=== PATIENT | female | born 1950 | race Two or more races ===

== ENCOUNTER 2023-01-01 23:12 | Inpatient (IN) | payer BC, OTHER ==
[~2023-01-01] VITALS: Ht 167.6 cm; Wt 121.1 kg
[2023-01-01 23:50] LABS: Basophils # (auto) 0.1 10 ^3/uL (0-0.2); Basophils % (auto) 0.7 % (0.0-2.0); Eosinophils # (auto) 0.4 10 ^3/uL (0-0.8); Eosinophils % (auto) 4.4 % (0.0-7.0); Hemoglobin 11.9 g/dL (12.2-16.2); Lymphocytes # (auto) 2.3 10 ^3/uL (0.4-5.4); Mean Corpuscular Hemoglobin 30.3 pg (28.0-32.0); Mean Corpuscular Hgb Conc. 32.9 g/dL (32.0-36.0); Mean Corpuscular Volume 92.2 fL (80.0-100.0); Monocytes # (auto) 0.8 10 ^3/uL (0-1.3); Monocytes % (auto) 8.7 % (0.0-12.0); Neutrophils # (auto) 5.5 10 ^3/uL (1.6-8.6); Neutrophils % (auto) 61.2 % (37.0-80.0); Nucleated Red Blood Cells % 0.1 %; Red Blood Cells 3.91 10^6/uL (4.0-5.20); Red Cell Distribution Width 15.7 % (11.8-14.3)
[2023-01-02 00:09] LABS: Bilirubin, Total 0.9 mg/dL (0.2-1.0); Total Protein 7.6 g/dL (6.4-8.2)
[2023-01-02 00:19] LABS: INR 0.99 (0.9-1.15); Partial Thromboplastin Time 26.1 sec (24.6-33.4)
[2023-01-02 00:32] LABS: Potassium 3.6 mmol/L (3.5-5.1)
[2023-01-02 00:33] LABS: Albumin 3.1 g/dL (3.4-5.0); Calcium 9.1 mg/dL (8.5-10.1)
[2023-01-02] MEDS ORDERED: hydrALAZINE HCL 20 MG/ML VL IV ONE (03:25)
[2023-01-02] MEDS ORDERED: ONDANSETRON HCL 4 MG/2 ML VIAL IV PRN (04:15)
[2023-01-02] MEDS ORDERED: HYDROcodone-ACET 5/325MG TAB PO PRN (04:15)
[2023-01-02] MEDS ORDERED: DEXTROSE (50%) 50ML SYRG IV PRN (04:15)
[2023-01-02] MEDS ORDERED: DOCUSATE SOD 100 MG CAP PO PRN (04:15)
[2023-01-02] MEDS ORDERED: hydrALAZINE HCL 20 MG/ML VL IV PRN (04:15)
[2023-01-02] MEDS ORDERED: LEVALBUTEROL HCL 1.25 MG/3 ML NEB NEB SCH (04:45)
[2023-01-02] MEDS ORDERED: FUROSEMIDE 20 MG/2 ML VIAL IV ONE (04:45)
[2023-01-02] MEDS ORDERED: ALBUMIN 25% 100 ML IV ONE (04:45)
[2023-01-02 04:56] LABS: Urine Bacteria FEW /hpf (None Seen); Urine Blood Negative /uL (Negative); Urine Specific Gravity 1.011 (1.001-1.035); Urine WBC 6 /hpf (0 - 5)
[2023-01-02 05:36] LABS: Basophils # (auto) 0 10 ^3/uL (0-0.2); Basophils % (auto) 0.3 % (0.0-2.0); Eosinophils # (auto) 0.1 10 ^3/uL (0-0.8); Eosinophils % (auto) 1.2 % (0.0-7.0); Hematocrit 34.7 % (36.0-46.0); Hemoglobin 12.1 g/dL (12.2-16.2); Lymphocytes # (auto) 1.3 10 ^3/uL (0.4-5.4); Lymphocytes % (auto) 12.9 % (10.0-50.0); Mean Corpuscular Hemoglobin 31.8 pg (28.0-32.0); Mean Corpuscular Hgb Conc. 34.8 g/dL (32.0-36.0); Mean Corpuscular Volume 91.3 fL (80.0-100.0); Monocytes # (auto) 0.8 10 ^3/uL (0-1.3); Monocytes % (auto) 7.4 % (0.0-12.0); Neutrophils % (auto) 78.2 % (37.0-80.0); Red Cell Distribution Width 15.6 % (11.8-14.3); White Blood Cell 10.2 10^3/uL (4.4-10.8)
[2023-01-02 05:38] LABS: Potassium 3.3 mmol/L (3.5-5.1)
[2023-01-02] MEDS ORDERED: ALBUTEROL SULF 2.5 MG/0.5ML(0.5%) NEB SOLN ONE (05:38)
[2023-01-02] MEDS ORDERED: IPRATROPIUM BROM 0.5 MG/2.5ML INH SOL ONE (05:38)
[2023-01-02] MEDS ORDERED: MORPHINE SULFATE INJ 2 MG/ml SYRG IV PRN (05:45)
[2023-01-02] MEDS ORDERED: methylPREDNISolone SOD SUCC 125 MG/2 ML VL IV ONE (05:45)
[2023-01-02] MEDS ORDERED: NITROGLYCERIN 0.4 MG SL TAB SL PRN (05:45)
[2023-01-02 05:47] LABS: Albumin 3.2 g/dL (3.4-5.0); BUN/Creatinine Ratio 25.6 (10.0-20.0); Calcium 8.6 mg/dL (8.5-10.1); Total Protein 7.2 g/dL (6.4-8.2)
[2023-01-02] MEDS ORDERED: methylPREDNISolone SOD SUCC 40 MG/ML VL IV SCH (06:00)
[2023-01-02] MEDS ORDERED: POTASSIUM CHL 20 Meq TABLET PO ONE (06:30)
[2023-01-02] MEDS ORDERED: cefTRIAXone 1GM/50ML D5W 50 ML IV SCH (06:30)
[2023-01-02] MEDS: SODIUM CHLOR 0.9% PF (SALINE LOCK) 10ML VIAL/SYR IV SCH ×3 (06:46→23:06)
[2023-01-02] MEDS: ACETAMINOPHEN 325 MG TAB PO PRN ×2 (06:47→18:21)
[2023-01-02] MEDS: IPRATROPIUM BROM 0.5 MG/2.5ML INH SOL NEB PRN ×2 (06:50→17:35)
[2023-01-02] MEDS: ALBUTEROL SULF 2.5 MG/0.5ML(0.5%) NEB SOLN NEB PRN ×2 (06:50→17:35)
[2023-01-02] MEDS: ACCU-CHEK COMFORT CURVE STRIP VI SCH ×4 (07:07→23:07)
[2023-01-02] MEDS: InsuLIN REG 1unit/0.01ml Soln (100units/ml) SC SCH ×4 (07:08→23:11)
[2023-01-02] MEDS ORDERED: IOHEXOL 300 MG/ML 100ML BOTTLE IJ ONE (10:41)
[2023-01-02] MEDS: ASPirin 81 mg TAB PO SCH (12:07)
[2023-01-02] MEDS: amLODIPine BESYLATE 5 MG TAB PO SCH (12:07)
[2023-01-02] MEDS: FAMOTIDINE (10MG/ML) 2ML VL IV SCH ×2 (12:07→23:03)
[2023-01-02] MEDS: METOPROLOL TARTRATE 25 MG TAB PO SCH ×2 (12:13→23:06)
[2023-01-02 13:28] VITALS: BP 127/76
[2023-01-02] MEDS: ALBUTEROL SULF 2.5 MG/0.5ML(0.5%) NEB SOLN NEB SCH ×3 (17:30→23:11)
[2023-01-02] MEDS: IPRATROPIUM BROM 0.5 MG/2.5ML INH SOL NEB SCH ×3 (17:30→23:11)
[2023-01-02] MEDS: MAGNESIUM SULFATE 1GM/100ML 100 ML IV SCH ×2 (18:01→20:44)
[2023-01-02] MEDS ORDERED: DexAMETHasone SOD PHOS 10MG/1ML VIAL INJ IV ONE (18:15)
[2023-01-02] MEDS: ATORVASTATIN 20 MG TAB PO SCH (23:06)
[2023-01-03] MEDS: ALBUTEROL SULF 2.5 MG/0.5ML(0.5%) NEB SOLN NEB SCH ×5 (06:00→22:26)
[2023-01-03] MEDS: IPRATROPIUM BROM 0.5 MG/2.5ML INH SOL NEB SCH ×5 (06:00→22:26)
[2023-01-03] MEDS: SODIUM CHLOR 0.9% PF (SALINE LOCK) 10ML VIAL/SYR IV SCH ×3 (06:32→21:58)
[2023-01-03 06:51] LABS: Hematocrit 32.3 % (36.0-46.0); Hemoglobin 10.7 g/dL (12.2-16.2); Mean Corpuscular Hemoglobin 30.5 pg (28.0-32.0); Mean Corpuscular Hgb Conc. 33.3 g/dL (32.0-36.0); Mean Corpuscular Volume 91.7 fL (80.0-100.0); Red Blood Cells 3.52 10^6/uL (4.0-5.20); Red Cell Distribution Width 15.6 % (11.8-14.3); White Blood Cell 16.4 10^3/uL (4.4-10.8)
[2023-01-03 06:55] LABS: Basophils % (manual) 0 (0.0-2.0); Blast Cells 0; Eosinophils % (manual) 0 (0-7); Metamyelocytes % 0; Myelocytes % 0; Promyelocytes % 0; Reactive Lymphocytes 0
[2023-01-03] MEDS: ACCU-CHEK COMFORT CURVE STRIP VI SCH ×4 (06:57→21:58)
[2023-01-03] MEDS: InsuLIN REG 1unit/0.01ml Soln (100units/ml) SC SCH ×4 (06:58→22:12)
[2023-01-03 07:17] LABS: Potassium 3.9 mmol/L (3.5-5.1)
[2023-01-03 07:23] LABS: Albumin 2.8 g/dL (3.4-5.0); BUN/Creatinine Ratio 28.1 (10.0-20.0); Bilirubin, Total 1.6 mg/dL (0.2-1.0); Calcium 8.7 mg/dL (8.5-10.1); Total Protein 6.9 g/dL (6.4-8.2)
[2023-01-03 08:40] LABS: Band Neutrophils % (manual) 17; Lymphocytes % (manual) 7 (10.0-50.0); Monocytes % (manual) 4 (0-12)
[2023-01-03] MEDS ORDERED: DexAMETHasone SOD PHOS 10MG/1ML VIAL INJ IV SCH (10:00)
[2023-01-03] MEDS: FAMOTIDINE (10MG/ML) 2ML VL IV SCH ×2 (10:42→21:57)
[2023-01-03] MEDS: DexAMETHasone SOD PHOS 10MG/1ML VIAL INJ IV SCH (10:42)
[2023-01-03] MEDS ORDERED: AZITHROMYCIN 500MG/ 250ML 250 ML IV ONE (10:45)
[2023-01-03] MEDS ORDERED: cefTRIAXone 1GM/50ML D5W 50 ML IV ONE (10:45)
[2023-01-03] MEDS: amLODIPine BESYLATE 5 MG TAB PO SCH (10:46)
[2023-01-03] MEDS: METOPROLOL TARTRATE 25 MG TAB PO SCH ×2 (10:46→21:58)
[2023-01-03] MEDS: ASPirin 81 mg TAB PO SCH (10:47)
[2023-01-03 12:36] VITALS: BP 97/51
[2023-01-03] MEDS ORDERED: AMLO-496 PO (14:19)
[2023-01-03] MEDS ORDERED: LISI-285 PO (14:19)
[2023-01-03] MEDS ORDERED: PANT40TA2 PO (14:19)
[2023-01-03] MEDS ORDERED: MULT1TAB95 PO (14:19)
[2023-01-03] MEDS ORDERED: ASPI1TAB20 PO (14:19)
[2023-01-03] MEDS ORDERED: ATOR-47 PO (14:19)
[2023-01-03] MEDS ORDERED: DULO1CAP6 PO (14:19)
[2023-01-03] MEDS ORDERED: ROPI2TAB31 PO (14:19)
[2023-01-03] MEDS ORDERED: MAGN400T40 PO (14:19)
[2023-01-03] MEDS ORDERED: ROPI0.5T18 PO (14:19)
[2023-01-03] MEDS ORDERED: B-COCAP34 OR (14:19)
[2023-01-03] MEDS ORDERED: METF-372 PO (14:19)
[2023-01-03] MEDS ORDERED: CHOL20004 PO (14:19)
[2023-01-03] MEDS ORDERED: DICL75TA3 PO (14:28)
[2023-01-03] MEDS ORDERED: INSLANTI SC (14:28)
[2023-01-03 16:00] VITALS: BP 123/59
[2023-01-03] MEDS: ATORVASTATIN 20 MG TAB PO SCH (21:57)
[2023-01-03 22:00] VITALS: BP 137/71
[2023-01-04 05:00] VITALS: BP 139/52
[2023-01-04] MEDS: ACCU-CHEK COMFORT CURVE STRIP VI SCH ×4 (06:16→22:25)
[2023-01-04] MEDS: SODIUM CHLOR 0.9% PF (SALINE LOCK) 10ML VIAL/SYR IV SCH ×3 (06:16→22:00)
[2023-01-04 06:17] LABS: Basophils # (auto) 0 10 ^3/uL (0-0.2); Basophils % (auto) 0.1 % (0.0-2.0); Eosinophils # (auto) 0 10 ^3/uL (0-0.8); Hematocrit 30.8 % (36.0-46.0); Hemoglobin 10.3 g/dL (12.2-16.2); Lymphocytes # (auto) 1.2 10 ^3/uL (0.4-5.4); Lymphocytes % (auto) 9.2 % (10.0-50.0); Mean Corpuscular Hemoglobin 30.5 pg (28.0-32.0); Mean Corpuscular Hgb Conc. 33.5 g/dL (32.0-36.0); Mean Corpuscular Volume 91.2 fL (80.0-100.0); Monocytes # (auto) 0.7 10 ^3/uL (0-1.3); Monocytes % (auto) 5.4 % (0.0-12.0); Neutrophils % (auto) 85.3 % (37.0-80.0); Nucleated Red Blood Cells % 0.1 %; Red Blood Cells 3.38 10^6/uL (4.0-5.20); Red Cell Distribution Width 15.3 % (11.8-14.3); White Blood Cell 12.9 10^3/uL (4.4-10.8)
[2023-01-04] MEDS: InsuLIN REG 1unit/0.01ml Soln (100units/ml) SC SCH ×4 (06:27→22:31)
[2023-01-04 06:35] LABS: Calcium 9.2 mg/dL (8.5-10.1); Magnesium 2.1 mg/dL (1.6-2.6); Potassium 3.4 mmol/L (3.5-5.1)
[2023-01-04] MEDS: IPRATROPIUM BROM 0.5 MG/2.5ML INH SOL NEB SCH ×5 (06:57→22:07)
[2023-01-04] MEDS: ALBUTEROL SULF 2.5 MG/0.5ML(0.5%) NEB SOLN NEB SCH ×5 (06:57→22:07)
[2023-01-04 08:00] VITALS: BP 149/86
[2023-01-04] MEDS ORDERED: INSULIN NPH Isophane (HUMAN) 1unit/0.01ml Susp(100units/ml) SC ONE (09:30)
[2023-01-04] MEDS: cefTRIAXone 1GM/50ML D5W 50 ML IV SCH (09:33)
[2023-01-04] MEDS: METOPROLOL TARTRATE 25 MG TAB PO SCH ×2 (09:35→22:34)
[2023-01-04] MEDS: ASPirin 81 mg TAB PO SCH (09:35)
[2023-01-04] MEDS: FAMOTIDINE (10MG/ML) 2ML VL IV SCH ×2 (09:36→22:33)
[2023-01-04] MEDS: amLODIPine BESYLATE 5 MG TAB PO SCH (09:36)
[2023-01-04] MEDS: DexAMETHasone SOD PHOS 10MG/1ML VIAL INJ IV SCH (09:36)
[2023-01-04] MEDS ORDERED: INSULIN LANTUS (GLARGINE) 1 /0.01ml (100units/ml) SC ONE (09:45)
[2023-01-04] MEDS ORDERED: POTASSIUM CHL 20 Meq TABLET PO ONE (09:45)
[2023-01-04] MEDS ORDERED: metFORMIN HYDROCHLORIDE 500 MG TAB PO ONE (09:45)
[2023-01-04] MEDS: AZITHROMYCIN 500MG/ 250ML 250 ML IV SCH (11:36)
[2023-01-04 12:00] VITALS: BP 124/60
[2023-01-04 16:00] VITALS: BP 128/75
[2023-01-04] MEDS ORDERED: INSULIN NPH Isophane (HUMAN) 1unit/0.01ml Susp(100units/ml) SC SCH (18:00)
[2023-01-04] MEDS: metFORMIN HYDROCHLORIDE 500 MG TAB PO SCH (18:39)
[2023-01-04 22:00] VITALS: BP 140/62
[2023-01-04] MEDS: INSULIN LANTUS (GLARGINE) 1 /0.01ml (100units/ml) SC SCH (22:00)
[2023-01-04] MEDS: ATORVASTATIN 20 MG TAB PO SCH (22:33)
[2023-01-05] MEDS: ALBUTEROL SULF 2.5 MG/0.5ML(0.5%) NEB SOLN NEB SCH ×2 (02:12→09:37)
[2023-01-05] MEDS: IPRATROPIUM BROM 0.5 MG/2.5ML INH SOL NEB SCH ×2 (02:12→09:37)
[2023-01-05 05:00] VITALS: BP 123/52
[2023-01-05] MEDS: SODIUM CHLOR 0.9% PF (SALINE LOCK) 10ML VIAL/SYR IV SCH ×2 (06:00→13:35)
[2023-01-05] MEDS: ACCU-CHEK COMFORT CURVE STRIP VI SCH ×2 (06:32→11:39)
[2023-01-05] MEDS: InsuLIN REG 1unit/0.01ml Soln (100units/ml) SC SCH ×2 (06:36→11:38)
[2023-01-05] MEDS: INSULIN LANTUS (GLARGINE) 1 /0.01ml (100units/ml) SC SCH (06:37)
[2023-01-05 08:00] VITALS: BP 146/76
[2023-01-05 08:21] VITALS: BP 123/52
[2023-01-05] MEDS: metFORMIN HYDROCHLORIDE 500 MG TAB PO SCH (08:23)
[2023-01-05] MEDS: amLODIPine BESYLATE 5 MG TAB PO SCH (08:23)
[2023-01-05] MEDS: ASPirin 81 mg TAB PO SCH (08:23)
[2023-01-05] MEDS: METOPROLOL TARTRATE 25 MG TAB PO SCH (08:24)
[2023-01-05] MEDS: cefTRIAXone 1GM/50ML D5W 50 ML IV SCH (08:24)
[2023-01-05] MEDS: DexAMETHasone SOD PHOS 10MG/1ML VIAL INJ IV SCH (08:25)
[2023-01-05] MEDS: FAMOTIDINE (10MG/ML) 2ML VL IV SCH (08:25)
[2023-01-05 09:00] VITALS: BP 146/76
[2023-01-05] MEDS: AZITHROMYCIN 500MG/ 250ML 250 ML IV SCH (10:15)
[2023-01-05] MEDS ORDERED: METO25TA5 PO (10:18)
[2023-01-05] MEDS ORDERED: LEVO-28 PO (10:18)
[2023-01-05 12:01] VITALS: BP 147/76
[2023-01-05 13:00] VITALS: BP 138/71
== END 2023-01-05 13:42 | disposition home or self-care (01) | DRG 193 ==
LOC: ER 23:12 → EDBD 23:12 → TELE 01-02 05:34 → CENTRAL 01-03 12:36 → TELE-CENTR 01-03 13:00
PROVIDERS: ADMIT Nurse Practitioner Family; ATTEND Internal Medicine Geriatric Medicine
DX: J18.9 Pneumonia, unspecified organism (principal); J96.01 Acute respiratory failure with hypoxia; J98.11 Atelectasis; N39.0 Urinary tract infection, site not specified; E44.0 Moderate protein-calorie malnutrition; Z68.41 Body mass index [BMI] 40.0-44.9, adult; Z20.822 Contact with and (suspected) exposure to COVID-19; I10 Essential (primary) hypertension; G47.30 Sleep apnea, unspecified; I16.0 Hypertensive urgency; E11.9 Type 2 diabetes mellitus without complications; Z79.84 Long term (current) use of oral hypoglycemic drugs; Z79.4 Long term (current) use of insulin; Z79.899 Other long term (current) drug therapy
CPT/HCPCS: 36415; 36600; 71045; 71260; 80048; 80053; 81001; 82805; 82962; 83735; 83880; 84484; 85007; 85025; 85027; 85379; 85610; 85730; 87070; 87086; 87205; 87426; 87804; 93005; 93306; 93970; 94640; 96365; 96375; G0378; J0696; J1100; J1815; J2405; J3490; P9047

== ENCOUNTER 2024-02-14 11:09 | Inpatient (IN) | payer OTHER ==
[~2024-02-14] VITALS: Ht 175.3 cm; Wt 84.0 kg
[2024-02-14] VITALS (33 sets, daily range): BP systolic 77–150; BP diastolic 29–55; PULSE 54–125; RESP 18–30; TEMP 96.8–98.3; O2SAT 97–100
[~2024-02-14 11:09] MED LIST: AMLO1TAB23 PO; ASPI1TAB20 PO; ATOR-47 PO; CHOL20004 PO; DICL75TA3 PO; DULO1CAP6 PO; INSLANTI SC; LEVO500T91 PO; LISI-285 PO; MAGN400T40 PO; METF-372 PO; METO25TA5 PO; MULT1TAB95 PO; PANT40TA2 PO; ROPI0.5T26 PO; ROPI2TAB31 PO
[2024-02-14] MEDS: SODIUM CHLORIDE 0.9% 2,000 ML IV ONE (11:15)
[2024-02-14] MEDS: ETOMIDATE (2MG/ML) 20ML VIAL IV ONE (11:15)
[2024-02-14] MEDS: SODIUM BICARB 8.4% 50Meq/50ml SYR Vial IV ONE (11:20)
[2024-02-14] MEDS: InsuLIN REG 1unit/0.01ml Soln (100units/ml) IV ONE (11:20)
[2024-02-14] MEDS: MIDAZOLAM HCL 5 MG/ML-1ML VIAL IV ONE (11:23)
[2024-02-14] MEDS: MIDAZOLAM DRIP 50 mg/50mL 50 ML IV ONE (11:28)
[2024-02-14] MEDS: MIDAZOLAM HCL 5 MG/ML-1ML VIAL ONE (11:28)
[2024-02-14] MEDS: SODIUM CHLORIDE 0.9% 1,000 ML IV ONE (11:30)
[2024-02-14] MEDS: MIDAZOLAM DRIP 50 mg/50mL 50 ML IV SCH (11:30)
[2024-02-14 11:36] LABS: Urine Bacteria None Seen /hpf (None Seen)
[2024-02-14 11:43] LABS: Basophils # (auto) 0.1 10 ^3/uL (0-0.2); Basophils % (auto) 0.7 % (0.0-2.0); Eosinophils # (auto) 0.3 10 ^3/uL (0-0.8); Eosinophils % (auto) 3.7 % (0.0-7.0); Hematocrit 36.6 % (36.0-46.0); Hemoglobin 12.5 g/dL (12.2-16.2); Lymphocytes # (auto) 4.2 10 ^3/uL (0.4-5.4); Lymphocytes % (auto) 48.2 % (10.0-50.0); Mean Corpuscular Hgb Conc. 34.1 g/dL (32.0-36.0); Monocytes # (auto) 0.4 10 ^3/uL (0-1.3); Monocytes % (auto) 4.7 % (0.0-12.0); Neutrophils # (auto) 3.7 10 ^3/uL (1.6-8.6); Neutrophils % (auto) 42.7 % (37.0-80.0); Red Blood Cells 4.16 10^6/uL (4.0-5.20); Red Cell Distribution Width 13.5 % (11.8-14.3); White Blood Cell 8.7 10^3/uL (4.4-10.8)
[2024-02-14 11:59] LABS: INR 1.08 (0.9-1.15); Partial Thromboplastin Time 20.2 SEC (24.5-34.5); Prothrombin Time 11.4 sec (9.3-11.8)
[2024-02-14] MEDS: ACETAMINOPHEN IV 1000 MG/100ML (10MG/ML) IV ONE (12:00)
[2024-02-14 12:02] LABS: Amphetamine Screen, Urine Neg (NEGATIVE); Barbiturate Scree,Urine Neg (NEGATIVE); Benzodiazephine Screen, Urine Neg (NEGATIVE); Cannabinoid Screen, Urine Neg (NEGATIVE); Cocaine Screen, Urine Neg (NEGATIVE); Opiate Scree,Urine Neg (NEGATIVE); Phencyclidine Screen, Urine Neg (NEGATIVE)
[2024-02-14 12:04] LABS: Urine Blood Negative /uL (Negative); Urine Clarity Clear (Clear); Urine Color Light-Yellow (Yellow); Urine Protein, UAD Negative (Negative); Urine Specific Gravity 1.031 (1.001-1.035); Urine Urobilinogen Normal (Negative); Urine WBC <1 /hpf (0 - 5)
[2024-02-14 12:06] LABS: Alanine Aminotransferase 20 U/L (7-40); Albumin 3.4 g/dL (3.2-4.8); Alkaline Phosphatase 191 U/L (46-116); Anion Gap 10 (5-15); Aspartate Aminotransferase 18 U/L (13-40); BUN/Creatinine Ratio 17.3 (10.0-20.0); Blood Alcohol < 3.0 mg/dL (<10); Blood Urea Nitrogen 22 mg/dL (9-23); Calcium 8.6 mg/dL (8.5-10.1); Carbon Dioxide 23 mmol/L (20-30); Chloride 104 mmol/L (98-107); Magnesium 1.6 mg/dL (1.6-2.6); Phosphorus 2.8 mg/dL (2.4-5.1); Potassium 3.8 mmol/L (3.5-5.1); Sodium 137 mmol/L (136-145)
[2024-02-14 12:07] LABS: Bilirubin, Total 1.6 mg/dL (0.2-1.0); Total Protein 5.8 g/dL (5.7-8.2)
[2024-02-14 12:15] LABS: Glucose 567 mg/dL (74-106); Lactic Acid w/Reflex 3.2 mmol/L (0.4-2.0)
[2024-02-14] MEDS: PIPERACILLIN-TAZOB 3.375GM 100 ML IV ONE (12:22)
[2024-02-14 12:25] LABS: Lipase 28 U/L (12-53)
[2024-02-14 13:54] LABS: Base Excess -6.3 mmol/L (-2.0-2.0)
[2024-02-14] MEDS: PROPOFOL 100 ML IV SCH (14:30)
[2024-02-14] MEDS ORDERED: DEXTROSE (50%) 50ML SYRG IV PRN (15:00)
[2024-02-14] MEDS: PROPOFOL 100 ML IV ONE (15:14)
[2024-02-14] MEDS: MAGNESIUM SULFATE 1GM/100ML 100 ML IV SCH (16:05)
[2024-02-14] MEDS: SODIUM CHLORIDE 0.9% 1,000 ML IV SCH (16:06)
[2024-02-14 16:48] LABS: Triglycerides 118 mg/dL (< 150)
[2024-02-14 16:49] LABS: LDL Cholesterol 183 mg/dL (< 100)
[2024-02-14 16:50] LABS: Cholesterol 237 mg/dL (< 200); HDL Cholesterol 49 mg/dL (40-59)
[2024-02-14] MEDS: NOREPINEPHRINE 8 MG/250ML KIT 250 ML IV SCH (18:11)
[2024-02-14] MEDS: NOREPINEPHRINE 8 MG/250ML KIT 250 ML IV ONE (18:15)
[2024-02-14] MEDS: ACCU-CHEK COMFORT CURVE STRIP VI SCH (18:24)
[2024-02-14] MEDS: InsuLIN REG 1unit/0.01ml Soln (100units/ml) SC SCH (18:26)
[2024-02-14] MEDS: METOPROLOL TARTRATE 25 MG TAB PO SCH (20:46)
[2024-02-14] MEDS: ATORVASTATIN 20 MG TAB PO SCH (21:07)
[2024-02-14] MEDS: PIPERACILLIN-TAZOB 3.375GM 100 ML IV SCH (21:07)
[2024-02-14] MEDS: INSULIN LANTUS (GLARGINE) 1 /0.01ml (100units/ml) SC SCH (21:07)
[2024-02-15] VITALS (112 sets, daily range): BP systolic 84–175; BP diastolic 37–89; PULSE 46–92; RESP 15–24; TEMP 94.5–100.6; O2SAT 96–100
[2024-02-15 04:11] LABS: Basophils # (auto) 0.1 10 ^3/uL (0-0.2); Basophils % (auto) 0.7 % (0.0-2.0); Eosinophils # (auto) 0.1 10 ^3/uL (0-0.8); Hematocrit 36.3 % (36.0-46.0); Hemoglobin 12.4 g/dL (12.2-16.2); Lymphocytes # (auto) 2.5 10 ^3/uL (0.4-5.4); Lymphocytes % (auto) 26.6 % (10.0-50.0); Mean Corpuscular Hemoglobin 29.5 pg (28.0-32.0); Mean Corpuscular Hgb Conc. 34.2 g/dL (32.0-36.0); Mean Corpuscular Volume 86.2 fL (80.0-100.0); Monocytes # (auto) 0.5 10 ^3/uL (0-1.3); Monocytes % (auto) 5.7 % (0.0-12.0); Neutrophils # (auto) 6.2 10 ^3/uL (1.6-8.6); Nucleated Red Blood Cells % 0.1 %; Red Blood Cells 4.21 10^6/uL (4.0-5.20); Red Cell Distribution Width 14.1 % (11.8-14.3); White Blood Cell 9.4 10^3/uL (4.4-10.8)
[2024-02-15 04:29] LABS: Alanine Aminotransferase 45 U/L (7-40); Albumin 3.1 g/dL (3.2-4.8); Alkaline Phosphatase 170 U/L (46-116); Anion Gap 8 (5-15); Aspartate Aminotransferase 73 U/L (13-40); BUN/Creatinine Ratio 23.9 (10.0-20.0); Blood Urea Nitrogen 21 mg/dL (9-23); Calcium 8.8 mg/dL (8.7-10.4); Carbon Dioxide 24 mmol/L (20-30); Chloride 109 mmol/L (98-107); Glucose 315 mg/dL (74-106); Magnesium 2.3 mg/dL (1.6-2.6); Sodium 141 mmol/L (136-145)
[2024-02-15 04:30] LABS: Bilirubin, Total 1.8 mg/dL (0.2-1.0); Total Protein 5.5 g/dL (5.7-8.2)
[2024-02-15 07:50] LABS: Base Excess -0.2 mmol/L (-2.0-2.0)
[2024-02-15] MEDS: POTASSIUM CHL 20MEQ/100ML 100 ML IV ONE ×2 (09:41→16:49)
[2024-02-15] MEDS: ASPirin-EC 81 mg tab PO SCH (09:43)
[2024-02-15] MEDS: ENOXAPARIN SOD 40 MG/0.4 ML SYRINGE SC SCH (09:46)
[2024-02-15] MEDS: amLODIPine BESYLATE 5 MG TAB PO SCH (09:47)
[2024-02-15] MEDS: HYDROCHLOROTHIAZI PO SCH (09:48)
[2024-02-15] MEDS: LISINOPRIL PO SCH (09:48)
[2024-02-15] MEDS: ROPINIROLE 1 MG PO SCH (09:49)
[2024-02-15] MEDS ORDERED: DABI150C5 PO (11:10)
[2024-02-15] MEDS ORDERED: INSUINJ2 SC (11:10)
[2024-02-15] MEDS ORDERED: GABA-339 PO (11:10)
[2024-02-15] MEDS ORDERED: INSREG3 IV (11:10)
[2024-02-15] MEDS ORDERED: DEXTROSE (50%) 50ML SYRG IV PRN (14:00)
[2024-02-15] MEDS: ENOXAPARIN SOD 80 MG/0.8ML SYRINGE SC SCH (14:45)
[2024-02-15] MEDS: PANTOPRAZOLE 40 MG/10 ML VIAL INJ IV ONE (15:43)
[2024-02-15] MEDS: Glucerna 1.2 Cal 1Liter BOTTLE GT SCH (16:51)
[2024-02-15] MEDS: hydrALAZINE HCL 20 MG/ML VL IV PRN (16:54)
[2024-02-15] MEDS: ACETAMINOPHEN 650 mg PER 20.3 mL UD GT PRN (17:51)
[2024-02-15] MEDS: InsuLIN REG 1unit/0.01ml Soln (100units/ml) SC SCH (17:53)
[2024-02-15] MEDS: ACCU-CHEK COMFORT CURVE STRIP VI SCH (18:02)
[2024-02-15] MEDS: METOPROLOL TARTRATE 25 MG TAB PO ONE (18:15)
[2024-02-15] MEDS: DOCUSATE ORAL LIQUID 100 MG/10 ML UD GT SCH (21:24)
[2024-02-16] VITALS (113 sets, daily range): BP systolic 83–192; BP diastolic 39–132; PULSE 58–126; RESP 11–42; TEMP 98.1–101.7; O2SAT 97–100
[2024-02-16 04:11] LABS: Basophils # (auto) 0.1 10 ^3/uL (0-0.2); Basophils % (auto) 0.4 % (0.0-2.0); Eosinophils # (auto) 0.2 10 ^3/uL (0-0.8); Eosinophils % (auto) 1.8 % (0.0-7.0); Hematocrit 44.8 % (36.0-46.0); Hemoglobin 14.6 g/dL (12.2-16.2); Lymphocytes # (auto) 3.5 10 ^3/uL (0.4-5.4); Lymphocytes % (auto) 27.5 % (10.0-50.0); Mean Corpuscular Hemoglobin 30.1 pg (28.0-32.0); Mean Corpuscular Hgb Conc. 32.5 g/dL (32.0-36.0); Mean Corpuscular Volume 92.5 fL (80.0-100.0); Monocytes # (auto) 1.5 10 ^3/uL (0-1.3); Monocytes % (auto) 12.1 % (0.0-12.0); Neutrophils # (auto) 7.3 10 ^3/uL (1.6-8.6); Neutrophils % (auto) 58.2 % (37.0-80.0); Nucleated Red Blood Cells % 0.2 %; Red Blood Cells 4.84 10^6/uL (4.0-5.20); Red Cell Distribution Width 15.4 % (11.8-14.3); White Blood Cell 12.6 10^3/uL (4.4-10.8)
[2024-02-16 04:59] LABS: Alanine Aminotransferase 169 U/L (7-40); Albumin 3.5 g/dL (3.2-4.8); Alkaline Phosphatase 190 U/L (46-116); Anion Gap 10 (5-15); Aspartate Aminotransferase 165 U/L (13-40); BUN/Creatinine Ratio 14.6 (10.0-20.0); Blood Urea Nitrogen 12 mg/dL (9-23); Calcium 9.3 mg/dL (8.7-10.4); Carbon Dioxide 22 mmol/L (20-30); Chloride 109 mmol/L (98-107); Glucose 208 mg/dL (74-106); Magnesium 2.2 mg/dL (1.6-2.6); Potassium 3.8 mmol/L (3.5-5.1); Sodium 141 mmol/L (136-145)
[2024-02-16 05:00] LABS: Bilirubin, Total 1.7 mg/dL (0.2-1.0); Total Protein 6.4 g/dL (5.7-8.2)
[2024-02-16 07:46] LABS: Base Excess 0.3 mmol/L (-2.0-2.0)
[2024-02-16] MEDS: PANTOPRAZOLE 40 MG/10 ML VIAL INJ IV SCH (08:32)
[2024-02-16] MEDS: LIDOCAINE 1% (LOCAL ANESTH.) PF 5ml SDV ID ONE (11:41)
[2024-02-16 13:07] LABS: Base Excess 0.3 mmol/L (-2.0-2.0)
[2024-02-16] MEDS: MORPHINE SULFATE INJ 2 MG/ml SYRG IV PRN (14:20)
[2024-02-16] MEDS: EPINEPHrine HCL 0.5 ML NEB ONE (14:37)
[2024-02-16] MEDS: IPRATROPIUM BROM 0.5 MG/2.5ML INH SOL ONE (14:37)
[2024-02-16] MEDS: ALBUTEROL SULF 2.5 MG/0.5ML(0.5%) NEB SOLN ONE (14:37)
[2024-02-16] MEDS ORDERED: EPINEPHrine HCL 0.5 ML NEB NEB PRN (15:00)
[2024-02-16] MEDS: LORazepam 2MG/ML-1ML VIAL IV PRN (15:03)
[2024-02-16] MEDS: FUROSEMIDE 40 MG/4 ML VIAL IV ONE (15:57)
[2024-02-16] MEDS: ACETAMINOPHEN 650 MG RECT SUPP PR PRN ×2 (16:56→23:55)
[2024-02-16] MEDS ORDERED: LABETALOL HCL 5 MG/ML 4ML SYRINGE IV PRN (18:00)
[2024-02-16] MEDS: METOPROLOL TARTRATE 1MG/1ML-5ML VIAL IV SCH (18:17)
[2024-02-16] MEDS: IPRATROPIUM BROM 0.5 MG/2.5ML INH SOL NEB PRN (21:51)
[2024-02-16] MEDS: ALBUTEROL SULF 2.5 MG/0.5ML(0.5%) NEB SOLN HHN PRN (21:51)
[2024-02-16] MEDS: PRAMIPEXOLE DIHYDROCHLORIDE MO 0.25 MG TAB PO SCH (22:00)
[2024-02-16] MEDS: SODIUM CHLOR 0.9% PF (SALINE LOCK) 10ML VIAL/SYR IV SCH (22:37)
[2024-02-17] VITALS (33 sets, daily range): BP systolic 119–159; BP diastolic 33–98; PULSE 76–125; RESP 12–23; TEMP 86.7–100.9; O2SAT 0–100
[2024-02-17 04:29] LABS: Basophils # (auto) 0.1 10 ^3/uL (0-0.2); Basophils % (auto) 0.6 % (0.0-2.0); Eosinophils # (auto) 0.1 10 ^3/uL (0-0.8); Eosinophils % (auto) 1.1 % (0.0-7.0); Hematocrit 39.3 % (36.0-46.0); Hemoglobin 13.4 g/dL (12.2-16.2); Lymphocytes # (auto) 2.4 10 ^3/uL (0.4-5.4); Lymphocytes % (auto) 22.2 % (10.0-50.0); Mean Corpuscular Hemoglobin 30.1 pg (28.0-32.0); Mean Corpuscular Hgb Conc. 34.2 g/dL (32.0-36.0); Monocytes # (auto) 0.9 10 ^3/uL (0-1.3); Monocytes % (auto) 7.9 % (0.0-12.0); Neutrophils # (auto) 7.5 10 ^3/uL (1.6-8.6); Neutrophils % (auto) 68.2 % (37.0-80.0); Red Blood Cells 4.46 10^6/uL (4.0-5.20); Red Cell Distribution Width 14.6 % (11.8-14.3); White Blood Cell 10.9 10^3/uL (4.4-10.8)
[2024-02-17 04:51] LABS: Alanine Aminotransferase 99 U/L (7-40); Albumin 3.6 g/dL (3.2-4.8); Alkaline Phosphatase 182 U/L (46-116); Anion Gap 9 (5-15); Aspartate Aminotransferase 55 U/L (13-40); BUN/Creatinine Ratio 18.1 (10.0-20.0); Blood Urea Nitrogen 13 mg/dL (9-23); Calcium 9.3 mg/dL (8.7-10.4); Carbon Dioxide 27 mmol/L (20-30); Chloride 104 mmol/L (98-107); Glucose 229 mg/dL (74-106); Magnesium 1.6 mg/dL (1.6-2.6); Potassium 2.8 mmol/L (3.5-5.1); Sodium 140 mmol/L (136-145)
[2024-02-17 04:52] LABS: Bilirubin, Total 1.7 mg/dL (0.2-1.0); Total Protein 6.5 g/dL (5.7-8.2)
[2024-02-17] MEDS: POTASSIUM CHL 20MEQ/100ML 100 ML IV SCH (05:53)
[2024-02-17] MEDS: MAGNESIUM SULFATE 1GM/100ML 100 ML IV ONE (07:09)
[2024-02-17] MEDS: hydrALAZINE HCL 20 MG/ML VL IV PRN (08:24)
[2024-02-17] MEDS ORDERED: ACETAMINOPHEN 650 MG RECT SUPP PR PRN (11:45)
[2024-02-17] MEDS: ACETAMINOPHEN 325 MG TAB PO PRN (11:55)
[2024-02-17] MEDS ORDERED: LORazepam 2MG/ML-1ML VIAL IV PRN (18:30)
[2024-02-17] MEDS: LORazepam 2MG/ML-1ML VIAL IV ONE (22:04)
[2024-02-18] VITALS (11 sets, daily range): BP systolic 119–145; BP diastolic 57–80; PULSE 71–94; RESP 16–20; TEMP 97.6–98.5; O2SAT 0–96
[2024-02-18 07:59] LABS: Alanine Aminotransferase 66 U/L (7-40); Albumin 3.8 g/dL (3.2-4.8); Alkaline Phosphatase 221 U/L (46-116); Anion Gap 10 (5-15); Aspartate Aminotransferase 32 U/L (13-40); BUN/Creatinine Ratio 25.4 (10.0-20.0); Blood Urea Nitrogen 17 mg/dL (9-23); Calcium 9.6 mg/dL (8.5-10.1); Carbon Dioxide 23 mmol/L (20-30); Chloride 106 mmol/L (98-107); Glucose 173 mg/dL (74-106); Magnesium 1.8 mg/dL (1.6-2.6); Potassium 3.5 mmol/L (3.5-5.1); Sodium 139 mmol/L (136-145)
[2024-02-18 08:00] LABS: Bilirubin, Total 1.9 mg/dL (0.2-1.0); Total Protein 6.5 g/dL (5.7-8.2)
[2024-02-18] MEDS: SULFAMETHOX W/TRIMETH(800/160MG) DS TAB PO ONE (14:47)
[2024-02-18] MEDS: SULFAMETHOX W/TRIMETH(800/160MG) DS TAB PO SCH (21:38)
[2024-02-19] VITALS (9 sets, daily range): BP systolic 125–153; BP diastolic 57–87; PULSE 78–94; RESP 16–18; TEMP 98.3–98.6; O2SAT 0–98
[2024-02-19] MEDS: ENOXAPARIN SOD 40 MG/0.4 ML SYRINGE SC ONE (11:55)
[2024-02-20] VITALS (7 sets, daily range): BP systolic 101–136; BP diastolic 45–76; PULSE 65–92; RESP 18; TEMP 98–98.4; O2SAT 0–98
[2024-02-20] MEDS ORDERED: BACDST PO (08:56)
[2024-02-20] MEDS: ENOXAPARIN SOD 40 MG/0.4 ML SYRINGE SC SCH (10:08)
== END 2024-02-20 15:35 | disposition home health service (06) | DRG 922 ==
LOC: EDBD 11:09 → ER 11:09 → EDUNIT# 11:09 → OVERFLOW 15:29 → ICU WEST 17:07 → TELE-WESTW 02-17 13:46
PROVIDERS: ADMIT Registered Nurse; ATTEND Internal Medicine Geriatric Medicine
PROC: 5A1945Z Respiratory Ventilation, 24-96 Consecutive Hours (ICD-10-PCS; principal; 2024-02-14)
PROC: 0BH17EZ Insertion of Endotracheal Airway into Trachea, Via Natural or Artificial Opening (ICD-10-PCS; 2024-02-14)
PROC: 4A00X4Z Measurement of Central Nervous Electrical Activity, External Approach (ICD-10-PCS; 2024-02-15)
DX: T67.01XA Heatstroke and sunstroke, initial encounter (principal); E11.10 Type 2 diabetes mellitus with ketoacidosis without coma; G93.41 Metabolic encephalopathy; J96.01 Acute respiratory failure with hypoxia; I21.A1 Myocardial infarction type 2; N17.9 Acute kidney failure, unspecified; E87.6 Hypokalemia; G25.81 Restless legs syndrome; I10 Essential (primary) hypertension; I48.91 Unspecified atrial fibrillation; K76.82 Hepatic encephalopathy; E86.0 Dehydration; X30.XXXA Exposure to excessive natural heat, initial encounter; Z79.4 Long term (current) use of insulin; Z79.82 Long term (current) use of aspirin; Z79.84 Long term (current) use of oral hypoglycemic drugs; Z79.899 Other long term (current) drug therapy; Z82.49 Family history of ischemic heart disease and other diseases of the circulatory system; Z83.3 Family history of diabetes mellitus; Z91.148 Patient's other noncompliance with medication regimen for other reason
CPT/HCPCS: 31500; 36415; 36600; 70450; 70551; 71045; 72125; 80053; 80061; 80307; 80320; 80329; 81001; 82010; 82140; 82550; 82805; 82962; 83036; 83605; 83690; 83735; 83880; 84100; 84132; 84443; 84484; 84702; 85025; 85610; 85730; 87040; 87070; 87077; 87081; 87086; 87186; 87205; 92610; 93005; 93306; 93886; 94002; 94003; 94640; 95819; 96361; 96365; 96367; 96375; 97110; 97116; 97163; G0378; J0131; J1815; J2250; J2470; J2543; J2704; J3480; J7060

== ENCOUNTER 2025-02-20 14:35 | Inpatient (IN) | payer OTHER ==
[~2025-02-20] VITALS: Ht 170.2 cm; Wt 79.8 kg
[~2025-02-20 14:35] MED LIST changes: +BACDST PO; +DABI150C5 PO; -DICL75TA3 PO; +GABA-339 PO; +INSREG3 IV; +INSUINJ2 SC; -LEVO500T91 PO; -ROPI0.5T26 PO
--- NOTE | 2025-02-20 15:08 | ED.PDOC ---
History of Present Illness(SKN HPI Comments 74y F who presents to the ED for chief complaint of wound check. Pt states she has been having wound to the R great toe for the past 2 - 3 days. Pt has noted wound to the volar aspect of the R great toe. Pt otherwise has noted stable vitals. Pt states she has history of DM and states she is otherwise c omplaint with her metformin. Able to ambulate w/o assistive devices. Pt otherwise denies any other symptoms at this time. Chief Complaint: Lower Extremity Time Seen by MD: 15:03 Primary Care Provider: UNKNOWN History of Present Illness: Medications, Allergies Allergies: Coded Allergies: Nitrofurantoin (Verified Allergy, Unknown, 15 HOUR HEADACHE, 01/02/23) Home Meds Active Scripts Clindamycin Hcl (Clindamycin Hcl) 300 Mg Cap, 1 CAP PO TID, #45 CAP Prov:ZEFERINO GLORIA MD 02/22/25 Metoprolol Tartrate (Metoprolol Tartrate) 25 Mg Tab, 1 TAB PO BID, #60 TAB 5 Refills Prov:MAMI ENRIQUEZ MD 01/05/23 Reported Medications Insulin NPH (Human) (Isophane) (Humulin N) 100 Unit/Ml Inj, 100 UNIT SC, INJ 02/15/24 Insulin Regular (Human) (Humulin R) 100 Unit/Ml Inj, 100 UNIT IV, INJ 02/15/24 Dabigatran Etexilate Mesylate (Pradaxa) 150 Mg Cap, 150 MG PO BID, CAP 02/15/24 Gabapentin (Gabapentin) 600 Mg Tab, 600 MG PO BID for 30 Days, MG 02/15/24 Insulin Glargine (Lantus) 100 Unit/Ml Inj, 100 UNIT SC, INJ 01/03/23 Cholecalciferol (D3) 50 Mcg Cap, 50 MCG PO, CAP 01/03/23 Multiple Vitamin (Multi Vitamin) 1 Tab Tab, 1 TAB PO, TAB 01/03/23 Magnesium Oxide (MAGNESIUM OXIDE) 400 Mg Tab, 1 TAB PO DAILY, #30 TAB 5 Refills 01/03/23 Aspirin (Aspir-81) 81 Mg Tab, 1 TAB PO DAILY, #30 TAB 5 Refills 01/03/23 Ropinirole Hydrochloride (ROPINIROLE ER) 2 Mg Tab, 2 MG PO, TAB 01/03/23 Atorvastatin Calcium (ATORVASTATIN CALCIUM) 80 Mg Tab, 1 TAB PO DAILY, #30 TAB 5 Refills 01/03/23 Duloxetine HCl (Duloxetine HCl) 60 Mg Cap, 60 MG PO, CAP 01/03/23 Lisinopril & Hydrochlorothiazi (Lisinopril/Hydrochlorothi) 1 Tab Tab, 1 TAB PO DAILY, #30 TAB 5 Refills 01/03/23 Pantoprazole Sodium Sesquihydr (Protonix) 40 Mg Tab, 40 MG PO DAILY, #30 TAB 01/03/23 Amlodipine Besylate (Amlodipine Besylate) 10 Mg Tab, 1 TAB PO DAILY, #30 TAB 5 Refills 01/03/23 Metformin Hydrochloride (Metformin Hcl) 1,000 Mg Tab, 1 TAB PO BID, #60 TAB 5 Refills 01/03/23 Information Source: Patient Mode of Arrival: Ambulatory Past Medical History PAST MEDICAL HISTORY: DM, HTN Surgical History: Denies all surgeries 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: No Pertinent ACCOUNTANT CONTROLLER History Family History Family History: Unknown Social History Smoker: Non-Smoker Alcohol: Denies ETOH Use Drugs: Denies Drug Use All Other Systems: Reviewed and Negative (see HPI) Physical Exam General Appearance: No Apparent Distress, Normal HEENT: Normal ENT Inspection, Pharynx Normal, TMs Normal Neck: Full Range of Motion, Non-Tender, Normal, Normal Inspection Respiratory: Chest Non-Tender, Lungs Clear, No Accessory Muscle Use, No Respiratory Distress, Normal Breath Sounds Cardiovascular: No Edema, No JVD, No Murmur, No Gallop, Normal Peripheral Pulses, Regular Rate/Rhythm Breast Exam: Deferred Gastrointestinal: No Organomegaly, Non Tender, No Pulsatile Mass, Normal Bowel Sounds, Soft Genitalia: Deferred Pelvic: Deferred Rectal: Deferred Extremities: No calf tenderness, Normal capillary refill, Normal inspection, Normal range of motion, Non-tender, No pedal edema Musculoskeletal : Apperance: Normal Neurologic: Alert, burglar alarm installer II-XII nml as Tested, No Motor Deficits, Normal Affect, Normal Mood, No Sensory Deficits Cerebellar Function: Normal Reflexes: Normal Skin: Wounds (1x1 cm wound to the volar aspect of R big toe, no noted discharge, with surrounding erythema to the surrounding toe) Lymphatic: No Adenopathy Was a procedure done? Was a procedure done?: No Differential Diagnosis (INTG) Differential Diagnosis: Osteomyelitis Abscess: Abscess, Bacteremia, Cellulitis X-Ray, Labs, Meds, VS Vital Signs Date Time Temp Pulse Resp B/P (MAP) Pulse Ox O2 Delivery O2 Flow Rate FiO2 02/20/25 14:46 98.3 104 18 167/78 (107) 96 98.3 Lab Test 02/20/25 19:04 02/20/25 15:13 02/20/25 02:12 Range/Units POC Glucose 425 *H 70-106 mg/dl White Blood Count 10.0 4.4-10.8 10^3/uL Red Blood Count 4.52 4.0-5.20 10^6/uL Hemoglobin 13.4 12.2-16.2 g/dL Hematocrit 40.0 36.0-46.0 % Mean Corpuscular Volume 88.5 80.0-100.0 fL Mean Corpuscular Hemoglobin 29.6 28.0-32.0 pg Mean Corpuscular Hemoglobin Concent 33.4 32.0-36.0 g/dL Red Cell Distribution Width 14.3 11.8-14.3 % Platelet Count 321 140-450 10^3/uL Mean Platelet Volume 8.1 6.9-10.8 fL Neutrophils (%) (Auto) 64.6 37.0-80.0 % Lymphocytes (%) (Auto) 23.8 10.0-50.0 % Monocytes (%) (Auto) 8.6 0.0-12.0 % Eosinophils (%) (Auto) 2.4 0.0-7.0 % Basophils (%) (Auto) 0.6 0.0-2.0 % Neutrophils # (Auto) 6.4 1.6-8.6 10 ^3/uL Lymphocytes # (Auto) 2.4 0.4-5.4 10 ^3/uL Monocytes # (Auto) 0.9 0-1.3 10 ^3/uL Eosinophils # (Auto) 0.2 0-0.8 10 ^3/uL Basophils # (Auto) 0.1 0-0.2 10 ^3/uL Nucleated Red Blood Cells 0.0 % Erythrocyte Sedimentation Rate 66 H 0-20 mm/hr Sodium Level 138 136-145 mmol/L Potassium Level 3.7 3.5-5.1 mmol/L Chloride Level 101 98-107 mmol/L Carbon Dioxide Level 25 20-31 mmol/L Anion Gap 12 5-15 Blood Urea Nitrogen 18 9-23 mg/dL Creatinine 1.12 H 0.550-1.02 mg/dL Glomerular Filtration Rate Calc 52 >90 mL/min BUN/Creatinine Ratio 16.1 10.0-20.0 Serum Glucose 524 *H 74-106 mg/dL Lactic Acid Level 1.9 0.4-2.0 mmol/L Calcium Level 9.8 8.7-10.4 mg/dL Total Bilirubin 1.4 H 0.2-1.0 mg/dL Aspartate Amino Transferase (AST) 18 13-40 U/L Alanine Aminotransferase (ALT) 15 7-40 U/L Alkaline Phosphatase 296 H 46-116 U/L C-Reactive Protein High Sensitivity 10.19 H <1.0 mg/dL Total Protein 7.6 5.7-8.2 g/dL Albumin 4.4 3.2-4.8 g/dL Urine Color Yellow Yellow Urine Clarity Clear Clear Urine pH 5.5 5.0-9.0 Urine Specific [place] 1.034 1.001-1.035 Urine Protein Trace H Negative Urine Ketones Trace Negative Urine Blood Trace H Negative /uL Urine Nitrite Negative Negative Urine Bilirubin Negative Negative Urine Urobilinogen Normal Negative mg/dL Urine Leukocyte Esterase 1+ Negative /uL Urine RBC 11 0 - 4 /hpf Urine Microscopic WBC 39 H 0-5 /HPF Urine Squamous Epithelial Cells Few <5 /hpf Urine Bacteria None seen None Seen /hpf Urine Hyaline Casts Few 0 - 2 /lpf Urine Yeast (Budding) Few None Seen /hpf Urine Glucose 4+ H Normal mg/dL Microbiology Date/Time Source Procedure Growth Status 02/20/25 15:13 Blood Blood Culture - Final Staph hominis subsp homins Complete 02/20/25 15:00 Blood Blood Culture - Preliminary NO GROWTH AFTER 72 HOURS OF INCUBATION. Resulted PATIENT: NADEEM LEDESMACCT: [id number]: [id number] : 1950 LOC: ER ROOM / BED: / AGE / SEX: 74 / F ADM STATUS: REG ER SERVICE 1501 ORDERING PHYSICIAN: ETHAN GALLOWAY NP PROCEDURE(s): RFTCT - CT R FOOT WO CONTRAST REASON: hx of dm, erythema to great toe + DM wound. R/o ORDER NUMBER(s): [id number], ACCESSION NUMBER(s): [id number] CLINICAL INFORMATION: Erythema to the great toe. History of diabetes. Diabetic wound. Rule out osteomyelitis. TECHNIQUE: Axial CT images of the right foot were obtained without IV contrast. Coronal and sagittal reformatted images were obtained, reviewed, and stored. All CT scans at this medical facility are performed using dose modulation techniques as appropriate to a performed exam including the following: Automated exposure control was utilized; adjustment of the MA and/or KV according to patient size; and use of iterative reconstruction technique. CTDIvol = 7.89 mGy DLP = 177.02 mGy-cm COMPARISON: None FINDINGS: Wound at the plantar aspect of the great toe with adjacent subcutaneous edema stranding, likely cellulitis and possible phlegmon extending adjacent to the interphalangeal joint of the great toe. No definite cortical destruction or acute erosive changes are seen to suggest osteomyelitis. Can not exclude abscess. No other acute or suspicious abnormality identified in the right foot IMPRESSION: 1. Wound at the plantar aspect of the great toe with surrounding soft tissue inflammatory changes, likely cellulitis and possible phlegmon. No definite erosive changes or cortical destruction are seen to suggest osteomyelitis. Correlate with clinical findings. MRI could be obtained to further evaluate if clinically indicated. 2. Can not exclude abscess. ATED BY: YASSINE ROSS DO DICTATED DATE/TIME: 02/20/251549 SIGNED BY: YASSINE ROSS DO SIGNED DATE/TIME: 02/20/251549 CC: X-Ray, Labs, Meds, VS Comment 74y F who presents to the ED for chief complaint of wound check. Patient arrives alert and oriented, ABC's intact, afebrile, vital signs stable, saturating well in room air Peripheral IV insertion+ labs were ordered. CBC was ordered to exclude anemia, blood loss, or infection. CMP was ordered to exclude electrolyte abnormalities, renal failure, dehydration, hyperglycemia and/or liver enzyme abnormalities. Urinalysis was ordered to rule out UTI or hematuria. Lactic ordered CRP and Sed rate ordered Diagnostic imaging ordered by me and results interpreted by radiology: Wound at the plantar aspect of the great toe with surrounding soft tissue inflammatory changes, likely cellulitis and possible phlegmon. No definite erosive changes or cortical destruction are seen to suggest osteomyelitis. Correlate with clinical findings. MRI could be obtained to further evaluate if clinically indicated. Labs show: glucose 524, CKD, lactic 1.9, CRP 10.19, alk phos 296 Ordered IV HEP LOCK, NS, Vanco per pharmacy, 10 units of sq Humalog Patient will require admission for further treatment. Patient verbalized understanding to plan. Pending orders from admission team. Time of 1ST Reevaluation: 16:27 Reevaluation 1ST: Unchanged Patient Education/Counseling: Diagnosis, Treatment Family Education/Counseling: No Family Present SEPSIS Sepsis Screen Physician Orders Ct R Foot Wo Contrast (02/20/25 15:01) Blood Culture (02/20/25 15:01) Heplock Iv (02/20/25 ) Mri R Foot Wo Contrast (02/21/25 19:08) Vital Signs Date Time Temp Pulse Resp B/P (MAP) Pulse Ox O2 Delivery O2 Flow Rate FiO2 02/20/25 14:46 98.3 104 18 167/78 (107) 96 98.3 Laboratory Tests Test 02/20/25 15:13 Lactic Acid Level 1.9 mmol/L (0.4-2.0) White Blood Count 10.0 10^3/uL (4.4-10.8) Departure 1 Departure Time of Disposition: 16:39 Impression: Primary Impression: Osteomyelitis Qualified Codes: M86.9 - Osteomyelitis, unspecified Additional Impressions: Cellulitis of foot Diabetic foot ulcer Qualified Codes: E08.621 - Diabetes mellitus due to underlying condition with foot ulcer; L97.519 - Non-pressure chronic ulcer of other part of right foot with unspecified severity Hyperglycemia Disposition: ADMITTED INPATIENT Condition: Serious e-Prescriptions Clindamycin Hcl (Clindamycin Hcl) 300 Mg Cap 1 CAP PO TID, #45 CAP Prov: ZEFERINO GLORIA MD 02/22/25 Critical Care Note Critical Care Time?: No Stability Stability form required: No Heart Score Heart Score: Heart Score Response (Comments) Value History N/A 0 EKG N/A 0 Age N/A 0 Risk Factors N/A 0 Troponin N/A 0 Total 0 I personally scribed for ETHAN GALLOWAY NP ([email or web address]) on 02/20/25 at 15:08. Electronically submitted by Brannon Li ([email or web address]). I personally scribed for ETHAN GALLOWAY NP ([email or web address]) on 02/20/25 at 15:10. Electronically submitted by Brannon Li ([email or web address]). I personally scribed for ETHAN GALLOWAY NP ([email or web address]) on 02/20/25 at 15:36. Electronically submitted by Brannon Li ([email or web address]). ETHAN GALLOWAY NP Feb 20, 2025 15:08
[2025-02-20 15:44] LABS: Hematocrit 40.0 % (36.0-46.0); Hemoglobin 13.4 g/dL (12.2-16.2); Mean Corpuscular Hemoglobin 29.6 pg (28.0-32.0); Mean Corpuscular Volume 88.5 fL (80.0-100.0); Nucleated Red Blood Cells % 0.0 %
--- NOTE | 2025-02-20 15:53 | DVH ---
CLINICAL INFORMATION: Erythema to the great toe. History of diabetes. Diabetic wound. Rule out oste omyelitis. TECHNIQUE: Axial CT images of the right foot were obtained without IV contrast. Coronal and sagittal reformatted images were obtained, reviewed, and stored. All CT scans at this medical facility are pe rformed using dose modulation techniques as appropriate to a performed exam including the following: Automated exposure control was utilized; adjustment of the MA and/or KV according to patient size; an d use of iterative reconstruction technique. CTDIvol = 7.89 mGy DLP = 177.02 mGy-cm COMPARISON: None FINDINGS: Wound at the plantar aspect of the great toe with adjacent subcutaneous edema stranding, li glenn cellulitis and possible phlegmon extending adjacent to the interphalangeal joint of the great to e. No definite cortical destruction or acute erosive changes are seen to suggest osteomyelitis. Can n ot exclude abscess. No other acute or suspicious abnormality identified in the right foot IMPRESSION: 1. Wound at the plantar aspect of the great toe with surrounding soft tissue inflammatory changes, li glenn cellulitis and possible phlegmon. No definite erosive changes or cortical destruction are seen t o suggest osteomyelitis. Correlate with clinical findings. MRI could be obtained to further evaluate if clinically indicated. 2. Can not exclude abscess.
[2025-02-20 15:59] LABS: Alanine Aminotransferase 15 U/L (7-40); Albumin 4.4 g/dL (3.2-4.8); Anion Gap 12 (5-15); BUN/Creatinine Ratio 16.1 (10.0-20.0); Blood Urea Nitrogen 18 mg/dL (9-23); Calcium 9.8 mg/dL (8.7-10.4); Carbon Dioxide 25 mmol/L (20-31); Chloride 101 mmol/L (98-107); Potassium 3.7 mmol/L (3.5-5.1); Sodium 138 mmol/L (136-145); Total Protein 7.6 g/dL (5.7-8.2)
[2025-02-20 16:02] LABS: Alkaline Phosphatase 296 U/L (46-116); Bilirubin, Total 1.4 mg/dL (0.2-1.0)
[2025-02-20 16:08] LABS: Glucose 524 mg/dL (74-106)
[2025-02-20] MEDS ORDERED: VANCOMYCIN PER PHARMACY 0 MG IV SCH ×2 (16:45→19:15)
[2025-02-20] MEDS ORDERED: VANCOMYCIN 1GM/200ML PM 250 ML IV SCH (17:00)
[2025-02-20] MEDS ORDERED: DEXTROSE (50%) 50ML SYRG IV PRN (19:15)
[2025-02-20] MEDS ORDERED: HYDROcodone-ACET 5/325MG TAB PO PRN (19:15)
[2025-02-20] MEDS ORDERED: HYDROmorphone HCL 2 MG/ML VL/or syr IV PRN (19:15)
[2025-02-20] MEDS ORDERED: ONDANSETRON HCL 4 MG/2 ML VIAL IV PRN (19:15)
[2025-02-20] MEDS ORDERED: DOCUSATE SOD 100 MG CAP PO PRN (19:15)
[2025-02-20] MEDS ORDERED: ACETAMINOPHEN 325 MG TAB PO PRN (19:15)
--- NOTE | 2025-02-20 19:19 | DVHHP2 ---
Admitting Diagnosis: Right ankle cellulitis History of Present Illness 74y F who presents to the ED for chief complaint of wound check. Pt states she has been having wound to the R great toe for the past 2 - 3 days. Pt has noted wound to the volar aspect of the R great toe. Pt otherwise has noted stable vitals. Pt states she has history of DM and states she is otherwise complaint with her metformin. Able to ambulate w/o assistive devices. Pt otherwise denies any other symptoms at this time. 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 Pertinent PURCHASE PRICE ANALYST History Family History Family History: Unknown Social History Smoker: Non-Smoker Alcohol: Denies ETOH Use Drugs: Denies Drug Use Patient Family History: FH: cancer Hypertension G8 MOTHER G8 FATHER Allergies: Coded Allergies: Nitrofurantoin (Verified Allergy, Unknown, 15 HOUR HEADACHE, 01/02/23) Home Meds Active Scripts Sulfamethoxazole W/Trimethopri (Bactrim Ds Tablet) 1 Tab Tb, 1 TAB PO Q12HR for 5 Days, #10 TAB Prov:MAMI ENRIQUEZ MD 02/20/24 Metoprolol Tartrate (Metoprolol Tartrate) 25 Mg Tab, 1 TAB PO BID, #60 TAB 5 Ref ills Prov:MAMI ENRIQUEZ MD 01/05/23 Reported Medications Insulin NPH (Human) (Isophane) (Humulin N) 100 Unit/Ml Inj, 100 UNIT SC, INJ 02/15/24 Insulin Regular (Human) (Humulin R) 100 Unit/Ml Inj, 100 UNIT IV, INJ 02/15/24 Dabigatran Etexilate Mesylate (Pradaxa) 150 Mg Cap, 150 MG PO BID, CAP 02/15/24 Gabapentin (Gabapentin) 600 Mg Tab, 600 MG PO BID for 30 Days, MG 02/15/24 Insulin Glargine (Lantus) 100 Unit/Ml Inj, 100 UNIT SC, INJ 01/03/23 Cholecalciferol (D3) 50 Mcg Cap, 50 MCG PO, CAP 01/03/23 Multiple Vitamin (Multi Vitamin) 1 Tab Tab, 1 TAB PO, TAB 01/03/23 Magnesium Oxide (MAGNESIUM OXIDE) 400 Mg Tab, 1 TAB PO DAILY, #30 TAB 5 Refills 01/03/23 Aspirin (Aspir-81) 81 Mg Tab, 1 TAB PO DAILY, #30 TAB 5 Refills 01/03/23 Ropinirole Hydrochloride (ROPINIROLE ER) 2 Mg Tab, 2 MG PO, TAB 01/03/23 Atorvastatin Calcium (ATORVASTATIN CALCIUM) 80 Mg Tab, 1 TAB PO DAILY, #30 TAB 5 Refills 01/03/23 Duloxetine HCl (Duloxetine HCl) 60 Mg Cap, 60 MG PO, CAP 01/03/23 Lisinopril & Hydrochlorothiazi (Lisinopril/Hydrochlorothi) 1 Tab Tab, 1 TAB PO DAILY, #30 TAB 5 Refills 01/03/23 Pantoprazole Sodium Sesquihydr (Protonix) 40 Mg Tab, 40 MG PO DAILY, #30 TAB 01/03/23 Amlodipine Besylate (Amlodipine Besylate) 10 Mg Tab, 1 TAB PO DAILY, #30 TAB 5 Refills 01/03/23 Metformin Hydrochloride (Metformin Hcl) 1,000 Mg Tab, 1 TAB PO BID, #60 TAB 5 Refills 01/03/23 Current Medications Current Medications Medications (Trade) Dose Ordered Sig/Barbara Route PRN Reason Start Time Stop Time Status Last Admin Vancomycin HCl 0 ml @ 0 mls/hr UD IV 02/20/25 16:45 Vancomycin HCl 250 ml @ 250 mls/hr Q1H IV 02/20/25 17:00 02/20/25 18:59 DC Vancomycin HCl 0 ml @ 0 mls/hr UD IV 02/20/25 19:15 UNV Piperacillin Sod/ Tazobactam Sod 100 ml @ 100 mls/hr Q8H IV 02/20/25 19:15 UNV Diagnostic Test (Pha) (Accu-Chek Comfort Curve T) 1 strip ACHS 02/20/25 22:00 UNV Insulin Human Regular (InsuLIN R) HS SC 02/20/25 22:00 UNV Insulin Human Regular (InsuLIN R) AC SC 02/21/25 07:00 UNV Dextrose 50 ml UD PRN IV Blood Sugar LESS THAN 60 02/20/25 19:15 UNV Vital Signs Vital Signs Date Time Temp Pulse Resp B/P (MAP) Pulse Ox O2 Delivery O2 Flow Rate FiO2 02/20/25 14:46 98.3 104 18 167/78 (107) 96 98.3 Physical Exam Generally 74 years old woman, well nourished well developed. Mild distress HEENT-atraumatic, normocephalic Heart-regular rate and rhythm Lungs clear to auscultate Abdomen soft nontender nondistended Musculoskeletal-right ankle erythema, tender to palpate, wrapped in gauze . No oozing Neuro-AO x3, no focal deficits SEPSIS Sepsis Screen Date sepsis recognized/suspect: Feb 20, 2025 Time Sepsis recognized/suspect: 6 Recent Procedure: No On Antibiotic Therapy: No Respiratory Rate >20: No Heart Rate >90: Yes Temp<36 C (96.8 F) or >38.3 C: No SBP <90 or MAP <65 mmHG: No New Acute Mental Status Change: No Is the patient on CPAP, BIPAP,: No Physician Orders Ct R Foot Wo Contrast (02/20/25 15:01) Blood Culture (02/20/25 15:01) Urinalysis (02/20/25 15:08) Vancomycin Per Pharmacy (02/20/25 16:45) Complete Blood Count (02/21/25 04:00) Creatinine (02/21/25 04:00) Vancomycin,Random (02/21/25 04:00) Heplock Iv (02/20/25 ) Vancomycin Per Pharmacy (02/20/25 19:15) Piperacillin-Tazob 3.375gm (Zosyn 3.375g (02/20/25 19:15) Glucose Blood (Accu-Chek Comfort Curve T (02/20/25 22:00) Insulin R (Human) (Insulin R) (02/20/25 22:00) Insulin R (Human) (Insulin R) (02/21/25 07:00) Dextrose 50% Syringe (02/20/25 19:15) Mri R Foot Wo Contrast (02/20/25 19:08) Podiatry Consult (02/20/25 19:08) Aspirin Enteric Coated Tablet (Ecotrin E (02/21/25 10:00) Insulin Lantus (Glargine) (Lantus) (02/20/25 19:15) Metoprolol Tartrate Tablet (Lopressor Ta (02/20/25 22:00) Multiple Vitamin Tablet (Mvi Tab) (02/21/25 10:00) Pantoprazole Tablet (Protonix Tablet) (02/21/25 10:00) (Nf) Amlodipine Besylate (02/21/25 10:00) (Nf) Atorvastatin Calcium (02/21/25 10:00) (Nf) Dabigatran Etexilate Mesylate (Prad (02/20/25 22:00) (Nf) Gabapentin (02/20/25 22:00) (Nf) Lisinopril & Hydrochlorothiazi (Lis (02/21/25 10:00) (Nf) Magnesium Oxide (02/21/25 10:00) Admit (02/20/25 19:12) Code Status (02/20/25 19:12) Vital Signs .PER UNIT PROTOCOL (02/20/25 19:12) Review Orders With Adm.Md (02/20/25 19:12) Encourage Activity As Tolerate (02/20/25 19:12) Consistent Carb(Ccho)Diabetes (02/21/25 Breakfast) Sodium Chloride Lock (Saline Lock Ns) (02/20/25 22:00) Docusate Sodium Capsule (Colace Capsule) (02/20/25 19:15) Acetaminophen Tablet (Tylenol Tablet) (02/20/25 19:15) Notify Md Of Changes From Base (02/20/25 19:12) Advance Directive (02/20/25 19:12) Patient Condition (02/20/25 19:12) Allergies (02/20/25 19:12) Hydrocodone-Acet 5/325mg Tab ([place] 5/32 (02/20/25 19:15) Hydromorphone Injection (Dilaudid Inject (02/20/25 19:15) Ondansetron Hcl (Zofran) (02/20/25 19:15) Complete Blood Count (02/21/25 05:00) Complete Blood Count (02/22/25 05:00) Complete Blood Count (02/23/25 05:00) Complete Blood Count (02/24/25 05:00) Complete Blood Count (02/25/25 05:00) Comprehensive Metabolic Panel (02/21/25 05:00) Comprehensive Metabolic Panel (02/22/25 05:00) Comprehensive Metabolic Panel (02/23/25 05:00) Comprehensive Metabolic Panel (02/24/25 05:00) Comprehensive Metabolic Panel (02/25/25 05:00) Npo After Midnight (02/20/25 19:13) Npo (Nothing By Mouth) Diet (02/21/25 Breakfast) Vital Signs Date Time Temp Pulse Resp B/P (MAP) Pulse Ox O2 Delivery O2 Flow Rate FiO2 02/20/25 14:46 98.3 104 18 167/78 (107) 96 98.3 Laboratory Tests Test 02/20/25 15:13 Lactic Acid Level 1.9 mmol/L (0.4-2.0) White Blood Count 10.0 10^3/uL (4.4-10.8) Results Labs Test 02/20/25 15:13 Range/Units White Blood Count 10.0 4.4-10.8 10^3/uL Red Blood Count 4.52 4.0-5.20 10^6/uL Hemoglobin 13.4 12.2-16.2 g/dL Hematocrit 40.0 36.0-46.0 % Mean Corpuscular Volume 88.5 80.0-100.0 fL Mean Corpuscular Hemoglobin 29.6 28.0-32.0 pg Mean Corpuscular Hemoglobin Concent 33.4 32.0-36.0 g/dL Red Cell Distribution Width 14.3 11.8-14.3 % Platelet Count 321 140-450 10^3/uL Mean Platelet Volume 8.1 6.9-10.8 fL Neutrophils (%) (Auto) 64.6 37.0-80.0 % Lymphocytes (%) (Auto) 23.8 10.0-50.0 % Monocytes (%) (Auto) 8.6 0.0-12.0 % Eosinophils (%) (Auto) 2.4 0.0-7.0 % Basophils (%) (Auto) 0.6 0.0-2.0 % Neutrophils # (Auto) 6.4 1.6-8.6 10 ^3/uL Lymphocytes # (Auto) 2.4 0.4-5.4 10 ^3/uL Monocytes # (Auto) 0.9 0-1.3 10 ^3/uL Eosinophils # (Auto) 0.2 0-0.8 10 ^3/uL Basophils # (Auto) 0.1 0-0.2 10 ^3/uL Nucleated Red Blood Cells 0.0 % Erythrocyte Sedimentation Rate 66 H 0-20 mm/hr Sodium Level 138 136-145 mmol/L Potassium Level 3.7 3.5-5.1 mmol/L Chloride Level 101 98-107 mmol/L Carbon Dioxide Level 25 20-31 mmol/L Anion Gap 12 5-15 Blood Urea Nitrogen 18 9-23 mg/dL Creatinine 1.12 H 0.550-1.02 mg/dL Glomerular Filtration Rate Calc 52 >90 mL/min BUN/Creatinine Ratio 16.1 10.0-20.0 Serum Glucose 524 *H 74-106 mg/dL Lactic Acid Level 1.9 0.4-2.0 mmol/L Calcium Level 9.8 8.7-10.4 mg/dL Total Bilirubin 1.4 H 0.2-1.0 mg/dL Aspartate Amino Transferase (AST) 18 13-40 U/L Alanine Aminotransferase (ALT) 15 7-40 U/L Alkaline Phosphatase 296 H 46-116 U/L C-Reactive Protein High Sensitivity 10.19 H <1.0 mg/dL Total Protein 7.6 5.7-8.2 g/dL Albumin 4.4 3.2-4.8 g/dL Primary Diagnosis Right wrist cellulitis rule out osteomyelitis Hypercalcemia Plan Right ankle CT shows cellulitis MRI right ankle to rule out osteomyelitis Vanco and Zosyn for broad-spectrum antibiotics Resume home Lantus 100 units Insulin sliding scale moderate Fingerstick goal 140-180 will hold dual antiplalets for possible procedure. resume if no surgery planned Podiatry consult for possible osteomyelitis Possible procedure restart low carb diet if no procedure plan Blood culture IV fluids Full code NPO after midnight PPI for GI prophylaxis Plan discussed with: Patient Problems List: (1) Cellulitis of foot Status: Acute (2) Diabetic foot ulcer Status: Acute Date of Service: Feb 20, 2025 Billing Provider: GERALD CALI MD Common Visit Codes: [id number]-[id number] INP/OBS CARE (HIGH) GERALD CALI MD Feb 20, 2025 19:19
[2025-02-20] MEDS: INSULIN LANTUS (GLARGINE) 1 /0.01ml (100units/ml) SC SCH (21:51)
[2025-02-20] MEDS: LACTATED RINGER'S 1,000 ML IV ONE (21:53)
[2025-02-20] MEDS: SODIUM CHLOR 0.9% PF (SALINE LOCK) 10ML VIAL/SYR IV SCH (21:53)
[2025-02-20] MEDS ORDERED: DABIGATRAN ETEXILATE MESYLATE 150 MG PO SCH (22:00)
[2025-02-21] VITALS (7 sets, daily range): BP systolic 105–166; BP diastolic 73–95; PULSE 72–76; RESP 16–18; TEMP 97–99.6; O2SAT 96–100
[2025-02-21] MEDS: ACCU-CHEK COMFORT CURVE STRIP VI SCH
[2025-02-21] MEDS: ATORVASTATIN 20 MG TAB PO SCH (00:07)
[2025-02-21] MEDS: INSULIN LISPRO (HUMAN) 100 UNITS/ML ML SC ONE (00:07)
[2025-02-21] MEDS: InsuLIN REG 1unit/0.01ml Soln (100units/ml) SC SCH ×2 (00:11→05:40)
[2025-02-21] MEDS: METOPROLOL TARTRATE 25 MG TAB PO SCH (00:14)
[2025-02-21] MEDS: SODIUM CHLORIDE 0.9% 500 ML IV ONE (00:24)
[2025-02-21] MEDS: PIPERACILLIN-TAZOB 3.375GM 100 ML IV SCH ×2 (00:24→08:42)
[2025-02-21 03:33] LABS: Urine Budding Yeast FEW /hpf (None Seen); Urine Protein, UAD TRACE (Negative)
[2025-02-21 06:17] LABS: Hematocrit 39.4 % (36.0-46.0); Hemoglobin 13.6 g/dL (12.2-16.2); Mean Corpuscular Hemoglobin 30.1 pg (28.0-32.0); Mean Corpuscular Volume 86.9 fL (80.0-100.0); Nucleated Red Blood Cells % 0.3 %
[2025-02-21 06:40] LABS: Alanine Aminotransferase 12 U/L (7-40); Albumin 4.1 g/dL (3.2-4.8); Anion Gap 10 (5-15); BUN/Creatinine Ratio 23.5 (10.0-20.0); Blood Urea Nitrogen 20 mg/dL (9-23); Calcium 10.0 mg/dL (8.7-10.4); Carbon Dioxide 27 mmol/L (20-31); Chloride 103 mmol/L (98-107); Sodium 140 mmol/L (136-145); Total Protein 7.2 g/dL (5.7-8.2)
[2025-02-21 06:45] LABS: Alkaline Phosphatase 262 U/L (46-116); Bilirubin, Total 1.7 mg/dL (0.2-1.0); Glucose 211 mg/dL (74-106); Potassium 3.5 mmol/L (3.5-5.1)
[2025-02-21] MEDS ORDERED: PIPERACILLIN-TAZOB 3.375GM 100 ML IV SCH (08:30)
[2025-02-21] MEDS: GABAPENTIN 300 MG CAP PO SCH (08:39)
[2025-02-21] MEDS: MAGNESIUM OXIDE 400 MG TAB PO SCH (08:39)
[2025-02-21] MEDS: MULTIPLE VITAMIN TAB PO SCH (08:40)
[2025-02-21] MEDS: PANTOPRAZOLE 40 MG TAB PO SCH (08:42)
[2025-02-21] MEDS ORDERED: PATIENTS OWN MEDICATION (Lisinopril & Hydrochlorothiazi (Lisinopril/Hydrochlorothi) 1 TAB) PO SCH (10:00)
[2025-02-21] MEDS ORDERED: ASPirin-EC 81 mg tab PO SCH (10:00)
--- NOTE | 2025-02-21 10:46 | DVH ---
CLINICAL HISTORY: Right foot cellulitis. Rule out osteomyelitis. TECHNIQUE: Multi sequence multi planar MRI images of the right midfoot and forefoot were obtained wi thout IV contrast. COMPARISON: CT CT R FOOT WO CONTRAST on DOS: 02/20/25 FINDINGS: Motion artifact limits evaluation. Wound at the plantar aspect of the great toe with moder [id number] adjacent subcutaneous edema, ill-defined fluid, and soft tissue swelling, likely cellul itis in the appropriate clinical setting. More focal area of T2 hyperintense signal, possible fluid c ollection measuring up to 1.9 cm in AP dimension, 2.8 cm in transverse dimension, and 0.5 cm in crani ocaudal dimension, may be due to phlegmon, although abscess not excluded. Limited evaluation for absc ess on noncontrast enhanced exam. The collection appears to communicate with the wound. There is no e vidence for osteomyelitis. There is moderate subcutaneous edema along the dorsal aspect of the foot, which is nonspecific, may be seen with cellulitis or venous stasis changes. IMPRESSION: 1. Wound at the plantar aspect of the great toe with adjacent soft tissue edema, likely cellulitis in the appropriate clinical setting. 2. Possible fluid collection along the plantar aspect of the great toe, may be due to phlegmon. Absc ess not excluded. Limited evaluation for abscess on noncontrast enhanced exam. 3. No evidence for osteomyelitis.
--- NOTE | 2025-02-21 12:51 | DVHINCON2 ---
Date Seen: Feb 21, 2025 Reason for Consultation Right hallux wound History of Present Illness 74y F who presents to the ED for chief complaint of wound check. Pt states she has been having wound to the R great toe for the past 2 - 3 days. Pt has noted wound to the volar aspect of the R great toe. Pt otherwise has noted stable vitals. Pt states she has history of DM and states she is otherwise complaint with her metformin. Able to ambulate w/o assistive devices. Pt otherwise denies any other symptoms at this time. Past Medical History See H&P Past Surgical History See H&P Family History: FH: cancer Hypertension G8 MOTHER, G8 FATHER, Allergies: Coded Allergies: Nitrofurantoin (Verified Allergy, Unknown, 15 HOUR HEADACHE, 01/02/23) Home Meds Active Scripts Metoprolol Tartrate (Metoprolol Tartrate) 25 Mg Tab, 1 TAB PO BID, #60 TAB 5 Refills Prov:MAMI ENRIQUEZ MD 01/05/23 Reported Medications Insulin NPH (Human) (Isophane) (Humulin N) 100 Unit/Ml Inj, 100 UNIT SC, INJ 02/15/24 Insulin Regular (Human) (Humulin R) 100 Unit/Ml Inj, 100 UNIT IV, INJ 02/15/24 Dabigatran Etexilate Mesylate (Pradaxa) 150 Mg Cap, 150 MG PO BID, CAP 02/15/24 Gabapentin (Gabapentin) 600 Mg Tab, 600 MG PO BID for 30 Days, MG 02/15/24 Insulin Glargine (Lantus) 100 Unit/Ml Inj, 100 UNIT SC, INJ 01/03/23 Cholecalciferol (D3) 50 Mcg Cap, 50 MCG PO, CAP 01/03/23 Multiple Vitamin (Multi Vitamin) 1 Tab Tab, 1 TAB PO, TAB 01/03/23 Magnesium Oxide (MAGNESIUM OXIDE) 400 Mg Tab, 1 TAB PO DAILY, #30 TAB 5 Refills 01/03/23 Aspirin (Aspir-81) 81 Mg Tab, 1 TAB PO DAILY, #30 TAB 5 Refills 01/03/23 Ropinirole Hydrochloride (ROPINIROLE ER) 2 Mg Tab, 2 MG PO, TAB 01/03/23 Atorvastatin Calcium (ATORVASTATIN CALCIUM) 80 Mg Tab, 1 TAB PO DAILY, #30 TAB 5 Refills 01/03/23 Duloxetine HCl (Duloxetine HCl) 60 Mg Cap, 60 MG PO, CAP 01/03/23 Lisinopril & Hydrochlorothiazi (Lisinopril/Hydrochlorothi) 1 Tab Tab, 1 TAB PO DAILY, #30 TAB 5 Refills 01/03/23 Pantoprazole Sodium Sesquihydr (Protonix) 40 Mg Tab, 40 MG PO DAILY, #30 TAB 01/03/23 Amlodipine Besylate (Amlodipine Besylate) 10 Mg Tab, 1 TAB PO DAILY, #30 TAB 5 Refills 01/03/23 Metformin Hydrochloride (Metformin Hcl) 1,000 Mg Tab, 1 TAB PO BID, #60 TAB 5 Refills 01/03/23 Current Medications Current Medications Medications (Trade) Dose Ordered Sig/Barbara Route PRN Reason Start Time Stop Time Status Last Admin Vancomycin HCl 0 ml @ 0 mls/hr UD IV 02/20/25 16:45 Cancel Vancomycin HCl 250 ml @ 250 mls/hr Q1H IV 02/20/25 17:00 02/20/25 18:59 Cancel Vancomycin HCl 0 ml @ 0 mls/hr UD IV 02/20/25 19:15 Piperacillin Sod/ Tazobactam Sod 100 ml @ 100 mls/hr Q8H IV 02/20/25 19:15 02/21/25 02:46 DC 02/21/25 00:24 Diagnostic Test (Pha) (Accu-Chek Comfort Curve T) 1 strip ACHS 02/20/25 22:00 02/21/25 11:43 Insulin Human Regular (InsuLIN R) HS SC 02/20/25 22:00 02/21/25 00:11 Insulin Human Regular (InsuLIN R) AC SC 02/21/25 07:00 02/21/25 11:43 Dextrose 50 ml UD PRN IV Blood Sugar LESS THAN 60 02/20/25 19:15 Aspirin (Ecotrin Enteric Coated Tablet) 81 mg DAILY PO 02/21/25 10:00 02/20/25 19:21 DC Insulin Glargine (Lantus) 100 units QPM SC 02/20/25 20:50 Metoprolol Tartrate (Lopressor Tablet) 25 mg BID PO 02/20/25 22:00 02/21/25 08:40 Multivitamins (Mvi Tab) 1 tab DAILY PO 02/21/25 10:00 02/21/25 08:40 Pantoprazole Sodium (Protonix Tablet) 40 mg DAILY PO 02/21/25 10:00 02/21/25 08:42 Amlodipine Besylate (Norvasc Tablet) 10 mg DAILY PO 02/21/25 10:00 02/21/25 08:41 Atorvastatin Calcium (Lipitor) 80 mg HS PO 02/20/25 22:00 02/21/25 00:07 Patient Own Medication 150 mg BID PO 02/20/25 22:00 02/20/25 19:21 DC Gabapentin (Neurontin Capsule) 600 mg BID PO 02/21/25 10:00 02/21/25 08:39 Patient Own Medication 1 tab DAILY PO 02/21/25 10:00 Hold Magnesium Oxide (Mag-Ox Tablet) 400 mg DAILY PO 02/21/25 10:00 02/21/25 08:39 Sodium Chloride (Saline Lock Ns) 10 ml Q8HR IV 02/20/25 22:00 02/21/25 05:31 Docusate Sodium (Colace Capsule) 100 mg BIDPRN PRN PO FOR CONSTIPATION 02/20/25 19:15 Acetaminophen (Tylenol Tablet) 650 mg Q6HP PRN PO PAIN SCALE 1-3 OR TEMP>100.4 02/20/25 19:15 Acetaminophen/ Hydrocodone Bitart (Lancing 5/325MG Tab) 1 tab Q4HP PRN PO MODERATE PAIN (4-6 PAIN SCALE) 02/20/25 19:15 Hydromorphone HCl (Dilaudid Injection) 0.5 mg Q4HP PRN IV SEVERE PAIN (7-10 PAIN SCALE) 02/20/25 19:15 Ondansetron HCl (Zofran) 4 mg Q4HP PRN IV NAUSEA / VOMITING 02/20/25 19:15 Piperacillin Sod/ Tazobactam Sod 100 ml @ 100 mls/hr Q8H IV 02/21/25 08:30 02/21/25 02:47 DC Piperacillin Sod/ Tazobactam Sod 100 ml @ 25 mls/hr Q8H IV 02/21/25 08:30 02/21/25 08:42 Vancomycin HCl 100 ml @ 100 mls/hr Q12H IV 02/21/25 13:00 Vital Signs Vital Signs Date Time Temp Pulse Resp B/P (MAP) Pulse Ox O2 Delivery O2 Flow Rate FiO2 02/21/25 09:00 99.6 72 18 165/75 (105) 98 99.6 02/21/25 08:00 Room Air* 0 21 Physical Exam Dermatological: Skin is dry with mild erythema and some maceration around the wound site No gross deformities noted Mild non-pitting edema present bilaterally Wound: Location: Right plantar hallux Measures: 1 cm in length, 1 cm in width, and 0.5 cm in depth. Depth: Full thickness Base: Mix of granulation/slough Drainage: None Odor: None Periwound: Intact Vascular: Dorsalis pedis and posterior tibial pulses are 1+ bilaterally Capillary refill is under 2 seconds Skin temperature is warm bilaterally Neurologic: Protective sensation is absent on the plantar forefoot bilaterally Monofilament testing reveals decreased sensation in multiple plantar sites Musculoskeletal: Range of motion at the ankle and MTP joints is within normal limits. Strength is 5/5 in all tested muscle groups. Gait is antalgic due to offloading of the affected limb. Labs/Diagnostic Data Labs Test 02/21/25 11:29 02/21/25 05:20 02/20/25 15:13 02/20/25 02:12 Range/Units POC Glucose 207 H 70-106 mg/dl White Blood Count 10.2 4.4-10.8 10^3/uL Red Blood Count 4.53 4.0-5.20 10^6/uL Hemoglobin 13.6 12.2-16.2 g/dL Hematocrit 39.4 36.0-46.0 % Mean Corpuscular Volume 86.9 80.0-100.0 fL Mean Corpuscular Hemoglobin 30.1 28.0-32.0 pg Mean Corpuscular Hemoglobin Concent 34.6 32.0-36.0 g/dL Red Cell Distribution Width 14.4 H 11.8-14.3 % Platelet Count 299 140-450 10^3/uL Mean Platelet Volume 7.9 6.9-10.8 fL Neutrophils (%) (Auto) 73.3 37.0-80.0 % Lymphocytes (%) (Auto) 16.2 10.0-50.0 % Monocytes (%) (Auto) 8.3 0.0-12.0 % Eosinophils (%) (Auto) 1.8 0.0-7.0 % Basophils (%) (Auto) 0.4 0.0-2.0 % Neutrophils # (Auto) 7.5 1.6-8.6 10 ^3/uL Lymphocytes # (Auto) 1.6 0.4-5.4 10 ^3/uL Monocytes # (Auto) 0.8 0-1.3 10 ^3/uL Eosinophils # (Auto) 0.2 0-0.8 10 ^3/uL Basophils # (Auto) 0 0-0.2 10 ^3/uL Nucleated Red Blood Cells 0.3 % Sodium Level 140 136-145 mmol/L Potassium Level 3.5 3.5-5.1 mmol/L Chloride Level 103 98-107 mmol/L Carbon Dioxide Level 27 20-31 mmol/L Anion Gap 10 5-15 Blood Urea Nitrogen 20 9-23 mg/dL Creatinine 0.85 0.550-1.02 mg/dL Glomerular Filtration Rate Calc 72 >90 mL/min BUN/Creatinine Ratio 23.5 H 10.0-20.0 Serum Glucose 211 H 74-106 mg/dL Calcium Level 10.0 8.7-10.4 mg/dL Total Bilirubin 1.7 H 0.2-1.0 mg/dL Aspartate Amino Transferase (AST) 14 13-40 U/L Alanine Aminotransferase (ALT) 12 7-40 U/L Alkaline Phosphatase 262 H 46-116 U/L Total Protein 7.2 5.7-8.2 g/dL Albumin 4.1 3.2-4.8 g/dL Random Vancomycin Level < 3.0 L 5-10 ug/mL Erythrocyte Sedimentation Rate 66 H 0-20 mm/hr Lactic Acid Level 1.9 0.4-2.0 mmol/L C-Reactive Protein High Sensitivity 10.19 H <1.0 mg/dL Urine Color Yellow Yellow Urine Clarity Clear Clear Urine pH 5.5 5.0-9.0 Urine Specific [place] 1.034 1.001-1.035 Urine Protein Trace H Negative Urine Ketones Trace Negative Urine Blood Trace H Negative /uL Urine Nitrite Negative Negative Urine Bilirubin Negative Negative Urine Urobilinogen Normal Negative mg/dL Urine Leukocyte Esterase 1+ Negative /uL Urine RBC 11 0 - 4 /hpf Urine Microscopic WBC 39 H 0-5 /HPF Urine Squamous Epithelial Cells Few <5 /hpf Urine Bacteria None seen None Seen /hpf Urine Hyaline Casts Few 0 - 2 /lpf Urine Yeast (Budding) Few None Seen /hpf Urine Glucose 4+ H Normal mg/dL Problems(with codes): (1) Prerenal azotemia (2) Shortness of breath (3) Orthopnea (4) Respiratory distress (5) Paroxysmal nocturnal dyspnea (6) Hypoxic (7) Urinary tract infection (8) Hypertensive urgency (9) Altered level of consciousness (10) Hyperglycemia (11) Cellulitis of foot (12) Osteomyelitis (13) Diabetic foot ulcer Plan/Recommendation ASSESSMENT: Patient is a 74 year old seen on the floor for a worsening ulcer PLAN: - The patients chart was reviewed, clinical findings were discussed with the patient, the etiologies of the conditions were discussed in detail, and a treatment plan was agreed to at this time, with both oral and written instructions provided. - reviewed advanced imaging - discussed that the wound appears to be stable - no deeper infection - we will need 2 weeks of p.o. 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 The patient was given the phone number to the clinic and was told how to make contact with the clinic should any concerns or questions arise. Patient understands that if any questions or concerns arise prior to the next appointment, we should be contacted immediately. FOLLOW-UP: Continue to follow while inpatient Plan discussed with: Patient Date of Service: Feb 21, 2025 Billing Provider: ENDEINA MATA DPM Common Visit Codes: CONSULT ONLY Consultation Codes: [id number] CONSULT <80MIN ENEDINA MATA DPM Feb 21, 2025 12:51
[2025-02-21] MEDS ORDERED: VANCOMYCIN 750MG KIT 100 ML IV SCH (13:00)
[2025-02-21] MEDS ORDERED: VANCOMYCIN 750mg/150ml 150 ML IV SCH (13:30)
--- NOTE | 2025-02-21 13:46 | DVHPN2 ---
Reviewed: Care Plan, H&P, Labs, Medications, Previous Orders, Radiology Changes from previous H/P or p: No Changes Objective Vitals Vital Signs Date Time Temp Pulse Resp B/P (MAP) Pulse Ox O2 Delivery O2 Flow Rate FiO2 02/21/25 13:00 98.7 73 18 157/83 (107) 97 98.7 02/21/25 08:00 Room Air* 0 21 Intake/Output Intake and Output 02/21/25 07:00 Intake Total 100 ml Balance 100 ml Intake Oral 0 ml IV Total 100 ml # Voids 2 # Bowel Movements 2 Medications Current Medications Medications Dose Ordered Sig/Barbara Route Start Time Stop Time Status Last Admin Dose Admin Vancomycin HCl 0 ml @ 0 mls/hr UD IV 02/20/25 16:45 Cancel Vancomycin HCl 250 ml @ 250 mls/hr Q1H IV 02/20/25 17:00 02/20/25 18:59 Cancel Vancomycin HCl 0 ml @ 0 mls/hr UD IV 02/20/25 19:15 Diagnostic Test (Pha) 1 strip ACHS 02/20/25 22:00 02/21/25 11:43 1 STRIP Insulin Human Regular HS SC 02/20/25 22:00 02/21/25 00:11 10 UNITS Insulin Human Regular AC SC 02/21/25 07:00 02/21/25 11:43 6 UNITS Dextrose 50 ml UD PRN IV 02/20/25 19:15 Insulin Glargine 100 units QPM SC 02/20/25 20:50 Metoprolol Tartrate 25 mg BID PO 02/20/25 22:00 02/21/25 08:40 25 MG Multivitamins 1 tab DAILY PO 02/21/25 10:00 02/21/25 08:40 1 TAB Pantoprazole Sodium 40 mg DAILY PO 02/21/25 10:00 02/21/25 08:42 40 MG Amlodipine Besylate 10 mg DAILY PO 02/21/25 10:00 02/21/25 08:41 10 MG Atorvastatin Calcium 80 mg HS PO 02/20/25 22:00 02/21/25 00:07 80 MG Gabapentin 600 mg BID PO 02/21/25 10:00 02/21/25 08:39 600 MG Patient Own Medication 1 tab DAILY PO 02/21/25 10:00 Hold Magnesium Oxide 400 mg DAILY PO 02/21/25 10:00 02/21/25 08:39 400 MG Sodium Chloride 10 ml Q8HR IV 02/20/25 22:00 02/21/25 05:31 10 ML Docusate Sodium 100 mg BIDPRN PRN PO 02/20/25 19:15 Acetaminophen 650 mg Q6HP PRN PO 02/20/25 19:15 Acetaminophen/ Hydrocodone Bitart 1 tab Q4HP PRN PO 02/20/25 19:15 Hydromorphone HCl 0.5 mg Q4HP PRN IV 02/20/25 19:15 Ondansetron HCl 4 mg Q4HP PRN IV 02/20/25 19:15 Piperacillin Sod/ Tazobactam Sod 100 ml @ 25 mls/hr Q8H IV 02/21/25 08:30 02/21/25 08:42 25 MLS/HR Vancomycin HCl 150 ml @ 100 mls/hr Q12H IV 02/21/25 13:00 Laboratory Results Laboratory Tests 02/21/25 05:20 Chemistry Test 02/20/25 15:13 02/21/25 05:20 Albumin 4.4 g/dL (3.2-4.8) 4.1 g/dL (3.2-4.8) Calcium Level 9.8 mg/dL (8.7-10.4) 10.0 mg/dL (8.7-10.4) Total Protein 7.6 g/dL (5.7-8.2) 7.2 g/dL (5.7-8.2) LFT Test 02/20/25 15:13 02/21/25 05:20 Alanine Aminotransferase (ALT) 15 U/L (7-40) 12 U/L (7-40) Alkaline Phosphatase 296 U/L (46-116) H 262 U/L (46-116) H Aspartate Amino Transferase (AST) 18 U/L (13-40) 14 U/L (13-40) Total Bilirubin 1.4 mg/dL (0.2-1.0) H 1.7 mg/dL (0.2-1.0) H Urinalysis Test 02/20/25 02:12 Urine Color Yellow (Yellow) Urine Clarity Clear (Clear) Urine pH 5.5 (5.0-9.0) Urine Specific [place] 1.034 (1.001-1.035) Urine Protein Trace (Negative) H Urine Ketones Trace (Negative) Urine Blood Trace /uL (Negative) H Urine Nitrite Negative (Negative) Urine Bilirubin Negative (Negative) Urine Urobilinogen Normal mg/dL (Negative) Urine Leukocyte Esterase 1+ /uL (Negative) Urine RBC 11 /hpf (0 - 4) Urine Microscopic WBC 39 /HPF (0-5) H Urine Squamous Epithelial Cells Few /hpf (<5) Urine Bacteria None seen /hpf (None Seen) Urine Hyaline Casts Few /lpf (0 - 2) Urine Yeast (Budding) Few /hpf (None Seen) Urine Glucose 4+ mg/dL (Normal) H Labs and/or images reviewed: Labs reviewed by me, Image(s) reviewed by me Assessment/Plan Assessment/Plan Cellulitis/abscess right 1st toe vancomycin Zosyn consult for podiatric Dr. Rocha Uncontrolled diabetes with blood sugar 524: Aggressive insulin sliding scale diabetic education will check A1c Hypertension Medication noncompliance Patient is full code Time spent 45 minutes Advanced care planning time 20 minutes Plan discussed with: Patient My Orders Orders - ZEFERINO GLORIA MD Procedure Category Date Status Time Hemoglobin A1c LAB 02/21/25 Logged 13:41 Podiatry Consult CONS 02/21/25 Verified 13:42 Date of Service: Feb 21, 2025 Billing Provider: ZEFERINO GLORIA MD Common Visit Codes: [id number] INP/OBS CARE(HIGH) Secondary Visit Codes: [id number] CARE PLAN 30 MINUTES ZEFERINO GLORIA MD Feb 21, 2025 13:46
[2025-02-21] MEDS: VANCOMYCIN 750mg/150ml 150 ML IV SCH (14:36)
[2025-02-21] MEDS: INSULIN LANTUS (GLARGINE) 1 /0.01ml (100units/ml) SC SCH (16:53)
[2025-02-22 01:00] VITALS: BP 125/71; PULSE 59; RESP 17; TEMP 97.3; O2SAT 94
[2025-02-22 05:00] VITALS: BP 108/63; PULSE 69; RESP 18; TEMP 97.3; O2SAT 98
[2025-02-22 06:12] LABS: Hematocrit 39.2 % (36.0-46.0); Hemoglobin 13.0 g/dL (12.2-16.2); Mean Corpuscular Hemoglobin 29.2 pg (28.0-32.0); Mean Corpuscular Volume 87.8 fL (80.0-100.0); Nucleated Red Blood Cells % 0.1 %
[2025-02-22 06:25] LABS: Alanine Aminotransferase 11 U/L (7-40); Anion Gap 10 (5-15); BUN/Creatinine Ratio 22.8 (10.0-20.0); Calcium 9.3 mg/dL (8.7-10.4); Carbon Dioxide 26 mmol/L (20-31); Chloride 102 mmol/L (98-107); Potassium 4.0 mmol/L (3.5-5.1); Sodium 138 mmol/L (136-145); Total Protein 7.2 g/dL (5.7-8.2)
[2025-02-22 06:30] LABS: Albumin 4.1 g/dL (3.2-4.8)
[2025-02-22 06:39] LABS: Alkaline Phosphatase 254 U/L (46-116); Bilirubin, Total 1.5 mg/dL (0.2-1.0); Blood Urea Nitrogen 26 mg/dL (9-23); Glucose 338 mg/dL (74-106)
[2025-02-22 09:00] VITALS: BP 128/75; PULSE 56; RESP 17; TEMP 97; O2SAT 98
[2025-02-22] MEDS ORDERED: CLIN1CAP70 PO (09:22)
--- NOTE | 2025-02-22 09:24 | DVHPN2 ---
Reviewed: Care Plan, H&P, Labs, Medications, Previous Orders, Radiology Changes from previous H/P or p: No Changes Objective Vitals Vital Signs Date Time Temp Pulse Resp B/P (MAP) Pulse Ox O2 Delivery O2 Flow Rate FiO2 02/22/25 09:20 73 160/89 02/22/25 09:00 97.0 17 98 97.0 02/22/25 08:00 Room Air* 0 21 Intake/Output Intake and Output 02/22/25 07:00 Intake Total 1892.5 ml Balance 1892.5 ml Intake Oral 1280 ml IV Total 612.5 ml # Voids 6 # Bowel Movements 1 Medications Current Medications Medications Dose Ordered Sig/Barbara Route Start Time Stop Time Status Last Admin Dose Admin Vancomycin HCl 0 ml @ 0 mls/hr UD IV 02/20/25 16:45 Cancel Vancomycin HCl 250 ml @ 250 mls/hr Q1H IV 02/20/25 17:00 02/20/25 18:59 Cancel Vancomycin HCl 0 ml @ 0 mls/hr UD IV 02/20/25 19:15 Diagnostic Test (Pha) 1 strip ACHS 02/20/25 22:00 02/22/25 06:51 1 STRIP Insulin Human Regular HS SC 02/20/25 22:00 02/21/25 21:57 4 UNITS Insulin Human Regular AC SC 02/21/25 07:00 02/22/25 06:55 12 UNITS Dextrose 50 ml UD PRN IV 02/20/25 19:15 Metoprolol Tartrate 25 mg BID PO 02/20/25 22:00 02/22/25 09:20 25 MG Multivitamins 1 tab DAILY PO 02/21/25 10:00 02/22/25 09:20 1 TAB Pantoprazole Sodium 40 mg DAILY PO 02/21/25 10:00 02/22/25 09:19 40 MG Amlodipine Besylate 10 mg DAILY PO 02/21/25 10:00 02/22/25 09:19 10 MG Atorvastatin Calcium 80 mg HS PO 02/20/25 22:00 02/21/25 21:21 80 MG Gabapentin 600 mg BID PO 02/21/25 10:00 02/22/25 09:19 600 MG Patient Own Medication 1 tab DAILY PO 02/21/25 10:00 Hold Magnesium Oxide 400 mg DAILY PO 02/21/25 10:00 02/22/25 09:19 400 MG Sodium Chloride 10 ml Q8HR IV 02/20/25 22:00 02/22/25 06:26 10 ML Docusate Sodium 100 mg BIDPRN PRN PO 02/20/25 19:15 Acetaminophen 650 mg Q6HP PRN PO 02/20/25 19:15 Acetaminophen/ Hydrocodone Bitart 1 tab Q4HP PRN PO 02/20/25 19:15 Hydromorphone HCl 0.5 mg Q4HP PRN IV 02/20/25 19:15 Ondansetron HCl 4 mg Q4HP PRN IV 02/20/25 19:15 Piperacillin Sod/ Tazobactam Sod 100 ml @ 25 mls/hr Q8H IV 02/21/25 08:30 02/22/25 09:18 25 MLS/HR Vancomycin HCl 150 ml @ 100 mls/hr Q12H IV 02/21/25 13:00 02/22/25 01:40 100 MLS/HR Insulin Glargine 10 units QPM SC 02/21/25 18:00 02/21/25 16:53 10 UNITS Laboratory Results Laboratory Tests 02/22/25 05:12 Chemistry Test 02/22/25 05:12 Albumin 4.1 g/dL (3.2-4.8) Calcium Level 9.3 mg/dL (8.7-10.4) Total Protein 7.2 g/dL (5.7-8.2) LFT Test 02/22/25 05:12 Alanine Aminotransferase (ALT) 11 U/L (7-40) Alkaline Phosphatase 254 U/L (46-116) H Aspartate Amino Transferase (AST) 15 U/L (13-40) Total Bilirubin 1.5 mg/dL (0.2-1.0) H Urinalysis Test 02/20/25 02:12 Urine Color Yellow (Yellow) Urine Clarity Clear (Clear) Urine pH 5.5 (5.0-9.0) Urine Specific [place] 1.034 (1.001-1.035) Urine Protein Trace (Negative) H Urine Ketones Trace (Negative) Urine Blood Trace /uL (Negative) H Urine Nitrite Negative (Negative) Urine Bilirubin Negative (Negative) Urine Urobilinogen Normal mg/dL (Negative) Urine Leukocyte Esterase 1+ /uL (Negative) Urine RBC 11 /hpf (0 - 4) Urine Microscopic WBC 39 /HPF (0-5) H Urine Squamous Epithelial Cells Few /hpf (<5) Urine Bacteria None seen /hpf (None Seen) Urine Hyaline Casts Few /lpf (0 - 2) Urine Yeast (Budding) Few /hpf (None Seen) Urine Glucose 4+ mg/dL (Normal) H Microbiology Microbiology Date/Time Source Procedure Growth Status 02/20/25 15:13 Blood Blood Culture - Preliminary Resulted Labs and/or images reviewed: Labs reviewed by me, Image(s) reviewed by me Assessment/Plan Assessment/Plan Cellulitis/abscess right 1st toe vancomycin Zosyn consult for podiatric Dr. Rocha appreciated, advised to discharge the patient on p.o. antibiotics Uncontrolled diabetes with blood sugar 524: Aggressive insulin sliding scale diabetic education will check A1c Hypertension Medication noncompliance Patient is full code Time spent 45 minutes Advanced care planning time 20 minutes Plan discussed with: Patient My Orders Orders - ZEFERINO GLORIA MD Procedure Category Date Status Time Podiatry Consult CONS 02/21/25 Transmitted 13:42 Consistent DIET 02/21/25 Transmitted Carb(Ccho)Diabetes Dinner Insulin Lantus PHA 02/21/25 In Process (Glargine) (Lantus) 18:00 Date of Service: Feb 22, 2025 Billing Provider: ZEFERINO GLORIA MD Common Visit Codes: [id number] INP/OBS CARE(HIGH) ZEFERINO GLORIA MD Feb 22, 2025 09:24
--- NOTE | 2025-02-22 09:29 | DVHDS2 ---
Discharge Summary Date of Admission Feb 20, 2025 at 19:12 Date of Discharge: Feb 22, 2025 Admitting Diagnosis Right foot infection Wounds: Right foot infection Labs/Diagnostic Data: Laboratory Results Test 02/22/25 06:48 02/22/25 05:12 02/21/25 05:20 02/20/25 15:13 POC Glucose 308 mg/dl (70-106) White Blood Count 7.5 10^3/uL (4.4-10.8) Red Blood Count 4.46 10^6/uL (4.0-5.20) Hemoglobin 13.0 g/dL (12.2-16.2) Hematocrit 39.2 % (36.0-46.0) Mean Corpuscular Volume 87.8 fL (80.0-100.0) Mean Corpuscular Hemoglobin 29.2 pg (28.0-32.0) Mean Corpuscular Hemoglobin Concent 33.3 g/dL (32.0-36.0) Red Cell Distribution Width 14.4 % (11.8-14.3) Platelet Count 350 10^3/uL (140-450) Mean Platelet Volume 8.0 fL (6.9-10.8) Neutrophils (%) (Auto) 47.3 % (37.0-80.0) Lymphocytes (%) (Auto) 37.7 % (10.0-50.0) Monocytes (%) (Auto) 10.5 % (0.0-12.0) Eosinophils (%) (Auto) 3.8 % (0.0-7.0) Basophils (%) (Auto) 0.7 % (0.0-2.0) Neutrophils # (Auto) 3.5 10 ^3/uL (1.6-8.6) Lymphocytes # (Auto) 2.8 10 ^3/uL (0.4-5.4) Monocytes # (Auto) 0.8 10 ^3/uL (0-1.3) Eosinophils # (Auto) 0.3 10 ^3/uL (0-0.8) Basophils # (Auto) 0.1 10 ^3/uL (0-0.2) Nucleated Red Blood Cells 0.1 % Sodium Level 138 mmol/L (136-145) Potassium Level 4.0 mmol/L (3.5-5.1) Chloride Level 102 mmol/L (98-107) Carbon Dioxide Level 26 mmol/L (20-31) Anion Gap 10 (5-15) Blood Urea Nitrogen 26 mg/dL (9-23) Creatinine 1.14 mg/dL (0.550-1.02) Glomerular Filtration Rate Calc 51 mL/min (>90) BUN/Creatinine Ratio 22.8 (10.0-20.0) Serum Glucose 338 mg/dL (74-106) Calcium Level 9.3 mg/dL (8.7-10.4) Total Bilirubin 1.5 mg/dL (0.2-1.0) Aspartate Amino Transferase (AST) 15 U/L (13-40) Alanine Aminotransferase (ALT) 11 U/L (7-40) Alkaline Phosphatase 254 U/L (46-116) Total Protein 7.2 g/dL (5.7-8.2) Albumin 4.1 g/dL (3.2-4.8) Hemoglobin A1c 11.1 % A1C (<5.7) Random Vancomycin Level < 3.0 ug/mL (5-10) Erythrocyte Sedimentation Rate 66 mm/hr (0-20) Lactic Acid Level 1.9 mmol/L (0.4-2.0) C-Reactive Protein High Sensitivity 10.19 mg/dL (<1.0) Test 02/20/25 02:12 Urine Color Yellow (Yellow) Urine Clarity Clear (Clear) Urine pH 5.5 (5.0-9.0) Urine Specific [place] 1.034 (1.001-1.035) Urine Protein Trace (Negative) Urine Ketones Trace (Negative) Urine Blood Trace /uL (Negative) Urine Nitrite Negative (Negative) Urine Bilirubin Negative (Negative) Urine Urobilinogen Normal mg/dL (Negative) Urine Leukocyte Esterase 1+ /uL (Negative) Urine RBC 11 /hpf (0 - 4) Urine Microscopic WBC 39 /HPF (0-5) Urine Squamous Epithelial Cells Few /hpf (<5) Urine Bacteria None seen /hpf (None Seen) Urine Hyaline Casts Few /lpf (0 - 2) Urine Yeast (Budding) Few /hpf (None Seen) Urine Glucose 4+ mg/dL (Normal) Other Laboratory Tests 02/22/25 05:12 Brief Hx & Hospital Course: 74-year-old female with a history of diabetes hypertension came in for right foot infection found to have right 1st toe infection cellulitis/abscess. Started with the Zosyn and vancomycin. Podiatric saw the patient advised discharge with p.o. antibiotics. Diabetes blood sugar 524 treated with the aggressive insulin sliding scale. A1c 11.1. Patient is noncompliant with the medications. 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 Consults/Reason for consult [employer] Dr Rocha Operations or Procedures None Condition at Discharge: Fair Final Diagnosis/Problems List Cellulitis/abscess right 1st toe vancomycin Zosyn consult for podiatric Dr. Rocha appreciated, advised to discharge the patient on p.o. antibiotics Uncontrolled diabetes with blood sugar 524: Aggressive insulin sliding scale diabetic education will check A1c Hypertension Medication noncompliance Discharge Disposition: Home Discharge Instruct/Medications Diet: Consistent carbohydrate Activity: Light activity Follow Up/Referral: Check blood sugar 3 times a day and take diabetic medications appropriately Follow up with the primary Dr and your podiatricst for further care Medications: Clindamycin 300 mg PO TID # 45 Transmitted to [facility] Scheduled Amlodipine Besylate (Amlodipine Besylate), 1 TAB PO DAILY, (Reported) Aspirin (Aspir-81), 1 TAB PO DAILY, (Reported) Atorvastatin Calcium (Atorvastatin Calcium), 1 TAB PO DAILY, (Reported) Clindamycin Hcl (Clindamycin Hcl), 1 CAP PO TID Dabigatran Etexilate Mesylate (Pradaxa), 150 MG PO BID, (Reported) Gabapentin (Gabapentin), 600 MG PO BID, (Reported) Lisinopril & Hydrochlorothiazi (Lisinopril/Hydrochlorothi), 1 TAB PO DAILY, (Reported) Magnesium Oxide (Magnesium Oxide), 1 TAB PO DAILY, (Reported) Metformin Hydrochloride (Metformin Hcl), 1 TAB PO BID, (Reported) Metoprolol Tartrate (Metoprolol Tartrate), 1 TAB PO BID Pantoprazole Sodium Sesquihydr (Protonix), 40 MG PO DAILY, (Reported) Miscellaneous Medications Cholecalciferol (D3), 50 MCG PO, (Reported) Duloxetine HCl (Duloxetine HCl), 60 MG PO, (Reported) Insulin Glargine (Lantus), 100 UNIT SC, (Reported) Insulin NPH (Human) (Isophane) (Humulin N), 100 UNIT SC, (Reported) Insulin Regular (Human) (Humulin R), 100 UNIT IV, (Reported) Multiple Vitamin (Multi Vitamin), 1 TAB PO, (Reported) Ropinirole Hydrochloride (Ropinirole Er), 2 MG PO, (Reported) 35 (Time taken for discharge summary 35 mts) Discharge Statement: "Patient was advised to return to the ER or call 911 if any headaches, dizziness, shortness of breath, chest pain, abdominal pain, bleeding, fevers, or worsening of medical condition. Patient was counseled about treatment plan, medications, possible side effects, patientverbalized understanding. All questions were answered to the best of my ability. This discharge took greater then 30 minutes in planning, reviewing documentation, counseling the patient, and discussing with other team members." ASSESSMENT ASSESSMENT Hospital Course Improved Assessment Cellulitis/abscess right 1st toe vancomycin Zosyn consult for podiatric Dr. Rocha appreciated, advised to discharge the patient on p.o. antibiotics Uncontrolled diabetes with blood sugar 524: Aggressive insulin sliding scale diabetic education will check A1c Hypertension Medication noncompliance Date of Service: Feb 22, 2025 Billing Provider: ZEFERINO GLORIA MD Common Visit Codes: 75408-BPU/OBS DISCH DAY >30min ZEFERINO GLORIA MD Feb 22, 2025 09:29
[2025-02-22 13:03] VITALS: BP 140/86; PULSE 69; RESP 19; TEMP 97.4; O2SAT 97
[2025-02-22 17:00] VITALS: BP 135/92; PULSE 83; RESP 17; TEMP 99.2; O2SAT 99
== END 2025-02-22 17:29 | disposition home or self-care (01) | DRG 638 ==
LOC: ER 14:35 → OVERFLOW 19:12 → CENTRAL 23:50
PROVIDERS: ADMIT Family Medicine; ATTEND Family Medicine
DX: E11.69 Type 2 diabetes mellitus with other specified complication (principal); M86.8X7 Other osteomyelitis, ankle and foot; E11.628 Type 2 diabetes mellitus with other skin complications; E11.00 Type 2 diabetes mellitus with hyperosmolarity without nonketotic hyperglycemic-hyperosmolar coma (NKHHC); N17.0 Acute kidney failure with tubular necrosis; E83.52 Hypercalcemia; E11.65 Type 2 diabetes mellitus with hyperglycemia; I10 Essential (primary) hypertension; L97.519 Non-pressure chronic ulcer of other part of right foot with unspecified severity; Z79.4 Long term (current) use of insulin; Z82.49 Family history of ischemic heart disease and other diseases of the circulatory system; Z91.148 Patient's other noncompliance with medication regimen for other reason; Z79.82 Long term (current) use of aspirin; Z79.84 Long term (current) use of oral hypoglycemic drugs; Z88.8 Allergy status to other drugs, medicaments and biological substances; E11.621 Type 2 diabetes mellitus with foot ulcer; L03.031 Cellulitis of right toe
CPT/HCPCS: 36415; 73700; 73718; 80053; 80202; 81001; 82962; 83036; 83605; 85025; 85652; 86141; 87040; 87077; 87186; 87205; 96372; G0378; J1815; J2543